=== PATIENT | male | born 1980 | race Caucasian/White ===

== ENCOUNTER 2022-12-29 19:58 | Inpatient (IN) | payer OTHER, SELFPAY ==
[2022-12-29 20:21] VITALS: BP 127/78; PULSE 100; RESP 16; TEMP 36.8; O2SAT 96; BMI 33.3
--- NOTE | 2022-12-29 21:23 | MHC.EDTECH ---
EKG, Labs and a urine culture were obtained and sent to lab and patient was brought into room 17 in the ED.
[2022-12-29 21:29] VITALS: BP 118/81; PULSE 95; RESP 18; TEMP 36.8; O2SAT 96
[2022-12-29 21:57] LABS: Alanine Aminotransferase 33 U/L (0-40); Albumin Level 4.3 g/dL (3.5-5.0); Alkaline Phosphatase 83 U/L (39-117); Anion Gap 15 (12-20); Aspartate Amino Transferase 38 U/L (5-37); Bilirubin Total 0.7 mg/dL (0.0-1.0); Blood Urea Nitrogen 12 mg/dL (9-16); Calcium 9.3 mg/dL (8.4-10.2); Carbon Dioxide 21 mmol/L (22-29); Chloride 107 mmol/L (96-108); Creatinine Clr Calc Pharmacy 127.3; Estimated Glomerular Filt Rate > 60; Ethanol 70 mg/dL; Glucose Random 88 mg/dL (60-115); Potassium 4.1 mmol/L (3.3-5.1); Sodium 139 mmol/L (135-145); Total Protein 7.8 g/dL (6.5-8.0)
--- NOTE | 2022-12-29 22:49 | ED.PSYCH ---
HPI - Psych General Chief Complaint: Psychiatric Symptoms Stated Complaint: Suicidal thoughts Time Seen by Provider: 12/29/22 21:58 Source: patient Mode of arrival: ambulatory Limitations: no limitations History of Present Illness HPI Narrative: Patient is a 42-year-old male who presents to the emergency department with suicidal ideations. He states that he has been using crack cocaine intravenously for the past 2 days, last used approximately 2 hours ago. He states that he did this as an attempt to kill himself as he has been feeling increasingly more suicidal recently. He denies alcohol usage. When asked, he does endorse chest pain, described as a diffuse anterior pain, he is unable to identify any exacerbating or alleviating factors. Denies neck pain, radiation of the pain, shortness of breath, nausea, vomiting, abdominal pain. Related Data Allergies Allergy/AdvReac Type Severity Reaction Status Date / Time No Known Allergies Allergy Verified 12/29/22 20:26 Review of Systems Review of Systems: Yes all other systems are reviewed and are negative PMFSH Past Medical History Attestation statement: The following information was validated with the patient. Source: old records reviewed Social History Social History Alcohol intake: current Advance Directives: No Advance Directives Information Provided: No Physical Exam Vital Signs: Vital Signs: Last Vital Signs Temp 98.3 F 12/29/22 21:29 Pulse 74 12/30/22 00:03 Resp 17 12/30/22 00:03 BP 111/76 12/30/22 00:03 Pulse Ox 96 12/30/22 00:03 O2 Del Method Room Air 12/30/22 00:03 BMI result Body Mass Index 33.3 Course Reevaluation(s) Reevaluation #1: Serum labs overall unremarkable. Urinalysis without signs of infection. Toxicology testing as per MDM. High sensitive troponin is negative, EKG without acute ischemic findings, showing normal sinus rhythm, unlikely ACS. When asked at this time he denies chest pain. He is in no apparent distress, cleared for evaluation by care team. Vital signs stable. No respiratory distress. Placed in position observation at this time so that care team evaluation can ensue Time: 02:02 Medical Decision Making Medical Decision Making MDM Narrative: Patient is a 42-year-old male with past medical history of hypertension, GERD, depression, polysubstance use disorder presenting to emergency department for evaluation of suicidal ideations with plan to overdose. He is calm and cooperative at the time my examination. He does endorse chest pain, denies any recent URI symptoms or shortness of breath. Will obtain CBC to evaluate for leukocytosis/ anemia, CMP to evaluate for abnormal electrolytes /abnormal renal function/ abnormal hepatic function, EKG and troponin to evaluate for ischemia/ACS. Toxicology an ethanol level to be obtained. Once medically cleared he will require care team evaluation for determination of inpatient psychiatric services. Differential Diagnosis Differential Diagnoses: The differential diagnosis associated with the presentation includes (Polysubstance use disorder, ACS, costochondritis, depression, anxiety, suicidal ideations, unlikely PE, Wells negative.) Admission/Observation Consideration of admission/observation: Escalation of care including admission/observation considered (See narrative above/course for further detail) Consult Healthcare Provider Management of the patient was discussed with: Behavioral Health Provider Lab Data MDM Lab Attestation statement: I reviewed the patient's lab results. CMP overall unremarkable. High sensitive troponin below detectable levels, with normal EKG 12/29/22 21:21 12/29/22 21:21 Labs: Lab Results 12/29/22 12/30/22 Range/Units 21:21 01:14 WBC 13.0 H (4.8-10.8) X10*3/uL RBC 4.69 (4.60-5.80) X10*6/uL Hgb 14.6 (14.0-18.0) g/dl Hct 42.8 (42.0-52.0) % MCV 91.3 (80.0-98.0) fL MCH 31.1 (27.0-33.0) pg MCHC 34.1 (31.0-36.0) g/dl RDW 13.2 (11.0-16.0) % Plt Count 243 (160-400) X10*3/uL MPV 9.8 (9.4-12.4) fL Immature Gran % (Auto) 0.4 (0.0-0.4) % Neut % (Auto) 74.7 H (45-73) % Lymph % (Auto) 15.7 L (20-40) % [place] % (Auto) 8.3 (2-11) % Eos % (Auto) 0.5 (0-4) % Baso % (Auto) 0.4 (0-2) % Lymph # (Auto) 2.0 (1.2-4.9) X10*3/uL [place] # (Auto) 1.1 (0.1-1.2) X10*3/uL Eos # (Auto) 0.1 (0.0-0.4) X10*3/uL Baso # (Auto) 0.1 (0.0-0.2) X10*3/uL Abs Immat Gran (auto) 0.05 H (0.00-0.03) X10*3/uL Absolute Neuts (auto) 9.7 H (2.0-8.3) x10*3/uL Absolute Nucleated RBC 0.000 (0.0-0.012) X10*3/uL Nucleated RBC % (auto) 0.0 (0.0-0.2) /100WBC Sodium 139 (135-145) mmol/L Potassium 4.1 (3.3-5.1) mmol/L Chloride 107 (96-108) mmol/L Carbon Dioxide 21 L (22-29) mmol/L Anion Gap 15 (12-20) BUN 12 (9-16) mg/dL Creatinine 1.04 (0.5-1.4) mg/dL Estim Creat Clear Calc 127.3 Estimated GFR > 60 Random Glucose 88 (60-115) mg/dL Calcium 9.3 (8.4-10.2) mg/dL Total Bilirubin 0.7 (0.0-1.0) mg/dL AST 38 H (5-37) U/L ALT 33 (0-40) U/L Alkaline Phosphatase 83 (39-117) U/L Troponin I High Sens < 2.7 (<3.5-35.0) ng/L Total Protein 7.8 (6.5-8.0) g/dL Albumin 4.3 (3.5-5.0) g/dL Urine Color Yellow Urine Appearance Clear Urine pH 5.0 (5.0-9.0) Ur Specific [place] 1.010 (1.005-1.025) Urine Protein Negative (Neg-Trace) mg/dL Urine Glucose (UA) Negative (Negative) mg/dL Urine Ketones 15 (Negative) mg/dL Urine Blood Negative (Negative) Urine Nitrite Negative (Negative) Ur Leukocyte Esterase Negative (Negative) Salicylates < 5.0 L (15-30) mg/dL Urine Opiates Screen Not Detected (Not Detect) Urine Fentanyl Screen POSITIVE H (Not Detect) Acetaminophen < 17 (<30) mcg/mL Ur Barbiturates Screen Not Detected (Not Detect) Ur Phencyclidine Scrn Not Detected (Not Detect) Ur Amphetamines Screen Not Detected (Not Detect) U Benzodiazepines Scrn POSITIVE H (Not Detect) Urine Cocaine Screen POSITIVE H (Not Detect) U Marijuana (THC) Screen Not Detected (Not Detect) Ethyl Alcohol 70 mg/dL Independent Interpretation I performed an independent interpretation of an: EKG Interpretation: Rate: 88 Rhythm:? Normal sinus rhythm [place]:? Normal Normal P waves.? Normal BRADY.?? Normal QRS complex.?? ST T wave :??No ST elevation, no ST depression, no T-wave inversion qTC:447 prior studies:? No prior available for review The study has been interpreted contemporaneously by me. Chronic Conditions Patient?s care impacted by: Hypertension Social Determinants Patient?s care significantly limited by Social Determinants of Health including: Alcoholism and drug addiction in family and Problems related to primary support group Discharge Plan Discharge Clinical Impression: Suicidal ideation Patient Disposition: Still a Patient Interventions: Beason-Suicide Risk Severity Scale Last Done: 12/29/22 20:26
--- NOTE | 2022-12-29 23:53 | MHC.EDTECH ---
Belongings in POD Locker #2
[2022-12-30 00:03] VITALS: BP 111/76; PULSE 74; RESP 17; O2SAT 96
--- NOTE | 2022-12-30 04:33 | PC.NURSE ---
This RN assumed care at 2130. Patient walked with this RN with slow and steady gait to room 17. Patient endorses SI with plan to OD. Patient calm and cooperative, alert and able to make needs known. Patient changed into Johnnies and belongings secured. Patient put on 1:1 observation, checks done and patient sleeping with position changes noted and even chest rise and fall. Plan of care ongoing
[2022-12-30 04:58] VITALS: BP 112/77; PULSE 89; RESP 17; TEMP 37.2; O2SAT 98
--- NOTE | 2022-12-30 18:27 | PC.NURSE ---
PT transferred to the POD awaiting admission to M[facility]. No behavioral concerns. Resting in his room most of the time back here. Appetite is good.
--- NOTE | 2022-12-30 18:56 | PHA.MEDREC ---
Pharmacy Consult ? Medication Reconciliation Pharmacy has reviewed the medication reconciliation completed by
[2022-12-30] MEDS: chlorproMAZINE HCl 25 MG TABLET 50 MG PO (19:22)
[2022-12-30 20:25] VITALS: BMI 31.3
--- NOTE | 2022-12-30 20:53 | PC.ADMIT ---
Pt is a 42 y/o single, French speaking, male who is previously unknown to this unit. Pt is alert and oriented X4, vital sign stable, covid negative, tox screen positive for cocaine, fentanyl and ETOH. Pt is calm and cooperative upon admission, endorses depression and anxiety. pt denies Si at this time. No HI/VH/AH reported. Speech is normal with regular tone, rhythm and digna. Pt reports he needs help establishing outpatient programs. Pt reports that he is homeless and feels hopeless. Insight, judgment and impulse are poor. refinery operator vapor recovery unit completed with no visible open areas or bruising in the skin. Pt refused FLU shot. Admission orders obtained. Pt is currently resting in bed, no apparent distress noted.
[2022-12-30] MEDS: traZODone HCL 50 MG TABLET PO (23:11)
[2022-12-31 07:00] VITALS: BMI 32.3
[2022-12-31] MEDS: chlorproMAZINE HCl 25 MG TABLET 50 MG PO (08:51)
[2022-12-31] MEDS: diazePAM 5 MG TABLET PO ×4 (08:52→21:21)
--- NOTE | 2022-12-31 09:45 | PC.NURSE ---
Pt signed a 3-day notice up on January 05. UR, SW, and aware.
[2022-12-31] MEDS: Magnesium Hydrox/Alum Hydrox 30 ML ORAL.SUSP PO (12:17)
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
[2022-12-31 18:00] VITALS: BP 135/88; PULSE 80; RESP 16; TEMP 36.1; O2SAT 97
[2022-12-31] MEDS: Propranolol HCL 20 MG TABLET PO (21:20)
[2022-12-31] MEDS: traZODone HCL 100 MG TABLET PO (21:20)
[2023-01-01] MEDS: chlorproMAZINE HCl 25 MG TABLET 75 MG PO (02:01)
[2023-01-01 08:10] VITALS: BP 123/78; PULSE 61; TEMP 36; O2SAT 93
[2023-01-01] MEDS: buPROPion HCl XL 300 MG TAB.ER.24H PO (08:27)
[2023-01-01] MEDS: lisinopriL 20 MG TABLET PO (08:27)
[2023-01-01] MEDS: Propranolol HCL 20 MG TABLET PO (08:28)
[2023-01-01] MEDS: amLODIPine Besylate 5 MG TABLET PO (08:28)
[2023-01-01] MEDS: Topiramate 25 MG TABLET PO (08:31)
[2023-01-01] MEDS: diazePAM 5 MG TABLET PO (08:43)
[2023-01-01 09:02] LABS: Estimated Average Glucose 108 mg/dL; Hemoglobin A1c % 5.4 % (<6.0)
[2023-01-01 09:28] LABS: Cholesterol 160 mg/dL (<200); HDL Cholesterol 43 mg/dL (>40); LDL Cholesterol Calculated 104 mg/dL (<100); Triglycerides 67 mg/dL (<150)
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
[2023-01-01 09:38] LABS: HBS Num1 > 1000.00 mIU/mL (0-7.99); HBc Num1 0.19 S/CO (0.00-0.79); HBsAGNum1 0.31 S/CO (0.00-0.99); HIV AB/AG Nonreactive (Nonreactive); HIV Num 1 0.06 S/CO (0.00-0.99); Hepatitis A Antibody IgM 0.16 Index (0-0.79); Hepatitis B Core Antibody Nonreactive (Nonreactive); Hepatitis B Surface Antigen Negative (Negative); ~HepC Num1 12.81 S/CO (0.00-0.79); ~Hepatitis A Antibody IgM Nonreactive (Nonreactive); ~Hepatitis B Surface Antibody REACTIVE (Nonreactive); ~Hepatitis C Antibody Reactive (Nonreactive)
[2023-01-01 09:39] LABS: Thyroid Stimulating Hormone 0.99 uIU/mL (0.32-4.0)
[2023-01-01 09:55] LABS: Folate 14.3 ng/mL (> or = 4.0); Vitamin B12 341 pg/mL (200-900)
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
== END 2023-01-01 13:52 | disposition home or self-care (01) | DRG 755 ==
LOC: HO.ED 12-30 11:08 → HO.PM5 12-30 19:29
PROVIDERS: Admitting Provider Psychiatry & Neurology Psychiatry; Emergency Provider Emergency Medicine; Visit Provider Clinical Nurse Specialist Psychiatric/Mental Health, Adult
DX: F43.25 Adjustment disorder with mixed disturbance of emotions and conduct (principal); R45.851 Suicidal ideations; Z91.148 Patient's other noncompliance with medication regimen for other reason; F43.10 Post-traumatic stress disorder, unspecified; F11.90 Opioid use, unspecified, uncomplicated; F14.90 Cocaine use, unspecified, uncomplicated; Y90.3 Blood alcohol level of 60-79 mg/100 ml; F19.90 Other psychoactive substance use, unspecified, uncomplicated; I10 Essential (primary) hypertension; K21.9 Gastro-esophageal reflux disease without esophagitis; Z20.822 Contact with and (suspected) exposure to COVID-19; Z79.899 Other long term (current) drug therapy
CPT/HCPCS: 36415; 80053; 80061; 80143; 80179; 80307; 81003; 82607; 82746; 83036; 84443; 84484; 85025; 86704; 86706; 86709; 86803; 87340; 87389; 87635; 93005; 99285; S9485

== ENCOUNTER → 2022-12-30 19:17 | Outpatient (BNV) | payer OTHER, SELFPAY | PROVIDERS: Admitting Provider Psychiatry & Neurology Psychiatry; Emergency Provider Emergency Medicine; Visit Provider Clinical Nurse Specialist Psychiatric/Mental Health, Adult | DX: F25.0 Schizoaffective disorder, bipolar type (principal); F14.10 Cocaine abuse, uncomplicated; F43.11 Post-traumatic stress disorder, acute; F11.90 Opioid use, unspecified, uncomplicated; F19.90 Other psychoactive substance use, unspecified, uncomplicated | CPT/HCPCS: 90792; 99238 ==

== ENCOUNTER 2024-01-20 01:07 | Emergency (ER) | payer OTHER, SELFPAY ==
--- NOTE | 2024-01-20 | ECG_ITS ---
Test Reason : PALPITATIONS Blood Pressure : / mmHG Vent. Rate : 073 BPM Atrial Rate : 073 BPM P-R Int : 152 ms QRS Dur : 098 ms QT Int : 422 ms P-R-T Axes : 074 -19 012 degrees QTc Int : 464 ms Normal sinus rhythm Normal ECG When compared with ECG of 29-DEC-2022 21:14, No significant change was found Referred By: Generic ED Physician Electronically Signed By:BRAYDEN FLANAGAN
--- NOTE | ~2024-01-20 | CT_ITS ---
EXAMINATION: CT HEAD WITHOUT CONTRAST CLINICAL INFORMATION: headache, cocaine use COMPARISON: None available. TECHNIQUE: Contiguous axial imaging was performed from the skull base to vertex without intravenous administration of contrast. This CT examination was performed using dose optimization techniques as appropriate, variously including the following: *Automated exposure control *Adjustment of mA and/or kV according to patient size (this includes techniques or standardized protocols for targeted exams where dose is matched to indication/reason for exam; i.e. extremities or head) *Use of iterative reconstruction technique DLP: 836 mGy-cm FINDINGS: Old traumatic deformities, nasal bones. Bony calvarium is intact. Skull base is intact. No intracranial hemorrhage, mass effect, midline shift, hydrocephalus or herniation. See-white matter differentiation is normal. Posterior cranial fossa contents demonstrated no acute intracranial hemorrhage. Sellar/suprasellar region demonstrated no gross masses. Craniocervical junction is intact and normal. Polyploid mucosal thickening, maxillary sinus. No air-fluid levels. Tympanic cavities and mastoid cells are aerated. Calcified plaques in the V4 segments of the vertebral arteries.. CT/CT head/brain wo IV con IMPRESSION: No acute intracranial hemorrhage. Electronically signed by: Abdoul Sow MD 01/20/2024 02:20 PM EDT
[2024-01-20 01:17] VITALS: BP 141/102; PULSE 75; RESP 18; TEMP 36.3; O2SAT 96; BMI 32.1
--- OUTSIDE RECORDS SUMMARY | 2024-01-20 01:20 | XMS_ITS | Continuity of Care Document ---
Author Organization [facility] ter Address [address] [place] [id number]- Care Team Providers Care Relationship Counselor Name Role Phone Devin CONTRERAS, Og Burger Primary Care Physician Encounter [facility] [place] Date(s): 01/05/23 - 02/04/[address] [id number] Attending Physician: Javy Leigh DO Referring Physician: Not on Staff, Referring MD Allergies, Adverse Reactions, Alerts No Known Allergies Medications amLODIPine 10 mg oral tablet 10 mg, 1, tablet, By Mouth, Daily, # 30 tablet, Refills 0, Tot. Refills 0, Maintenance, 01/11/23 8:14:00 EDT, Print Requisition, Partial fill upon patient request if the prescription is for a schedule II opioid drug. Start Date: 01/11/23 Status: Ordered buPROPion 300 mg/24 hours (XL) oral tablet, extended release = 300 mg, By Mouth, Daily in AM, # 30 tablet, 0 Refills, Maintenance, 01/11/23 7:47:00 EDT, XL Tablet, Partial fill upon patient request if the prescription is for a schedule II opioid drug. Start Date: 01/11/23 Stop Date: 02/10/23 Status: Ordered cloNIDine 0.1 mg oral tablet 0.1 mg, 1, tablet, By Mouth, 3 times a day, PRN, And anxiety associated with opiate withdrawal, # 90 tablet, Refills 0, Tot. Refills 0, Maintenance, Agitation, 01/11/23 7:57:00 EDT, Print Requisition, Partial fill upon patient request if the prescript... Start Date: 01/11/23 Stop Date: 02/10/23 Status: Ordered folic acid 1 mg oral tablet 1 mg, By Mouth, Daily in AM, # 30 tablet, Refills 0, Tot. Refills 0, Maintenance, 01/11/23 7:48:00 EDT, Print Requisition, Partial fill upon patient request if the prescription is for a schedule II opioid drug. Start Date: 01/11/23 Stop Date: 02/10/23 Status: Ordered KlonoPIN 1 mg oral tablet = 1 mg, By Mouth, 3 times a day, # 90 tablet, 0 Refills, Maintenance, 01/11/23 8:49:00 EDT, Tablet,Partial fill upon patient request if the prescription is for a schedule II opioid drug. Start Date: 01/11/23 Stop Date: 02/10/23 Status: Ordered lisinopril 20 mg oral tablet 20 mg, By Mouth, Daily in AM, # 30 tablet, Refills 0, Tot. Refills 0, Maintenance, 01/11/23 7:48:00EDT, Print Requisition, Partial fill upon patient request if the prescription is for a schedule II opioid drug. Start Date: 01/11/23 Stop Date: 02/10/23 Status: Ordered multivitamin Multiple Vitamins oral capsule 1 capsule, By Mouth, Daily in AM, # 30 capsule, 0 Refills, Maintenance, 01/11/23 7:54:00 EDT, Capsule, Partial fill upon patient request if the prescription is for a schedule II opioid drug. Start Date: 01/11/23 Stop Date: 02/10/23 Status: Ordered propranolol 60 mg oral capsule, extended release 60 mg, 1, capsule, By Mouth, Daily in AM, # 30 capsule, Refills 0, Tot. Refills 0, Maintenance, 01/11/23 7:54:00 EDT, Print Requisition, Partial fill upon patient request if the prescription is for aschedule II opioid drug. Start Date: 01/11/23 Stop Date: 02/10/23 Status: Ordered pyridoxine 50 mg oral tablet 50 mg, By Mouth, Daily in AM, for 30 days, # 30 tablet, Refills 0, Tot. Refills 0, Acute 02/10/23 7:57:00 EST, 01/11/23 7:57:00 EDT, Print Requisition, Partial fill upon patient request if the prescription is for a schedule II opioid drug. Start Date: 01/11/23 Stop Date: 02/10/23 Status: Ordered SEROquel XR 150 mg oral tablet, extended release 150 mg, 1, tablet, By Mouth, Daily at bedtime, # 30 tablet, Refills 0, Tot. Refills 0, Maintenance,01/11/23 7:57:00 EDT, Print Requisition, Partial fill upon patient request if the prescription is for a schedule II opioid drug. Start Date: 01/11/23 Stop Date: 02/10/23 Status: Ordered thiamine 100 mg oral tablet 100 mg, 1, tablet, By Mouth, 2 times a day, for 30 days, # 60 tablet, Refills 0, Tot. Refills 0, Acute 02/10/23 7:54:00 EST, 01/11/23 7:54:00 EDT, Print Requisition, Partial fill upon patient requestif the prescription is for a schedule II opioid drug. Start Date: 01/11/23 Stop Date: 02/10/23 Status: Ordered topiramate 25 mg oral tablet 1 tablet = 25 mg, By Mouth, Daily in AM, # 30 tablet, 0 Refills, Maintenance, 01/11/23 7:57:00 EDT,Tablet, Partial fill upon patient request if the prescription is for a schedule II opioid drug. Start Date: 01/11/23 Stop Date: 02/10/23 Status: Ordered Problem List Condition Confirmation Course Effective Dates Status H ealth Status Informant Anemia Confirmed Active Hep C w/o coma, chronic Confirmed Active Depression Confirmed Active Hypertension Confirmed Active Alcohol use disorder, moderate, dependence Confirmed Active Obese class I Confirmed Active Opiate abuse, episodic Confirmed Active Polysubstance abuse Confirmed Active Social History Social History Type Response Tobacco Use: 4 or less cigar ettes(less than 1/4 pack)/day in last 30 days. Interested in cessation: No. No Sex Patient Care team information Care Team Personnel Name: Erwin Winchester RN Position: S RN Member Role: Primary Care Nurse Name: Dennis Banks RN Position: S RN Member Role: Primary Care Nurse Name: Sammie Ramos RN Position: S RN Member Role: Primary Care Nurse Name: Og Beltran MD Position: Reference Physician Member Role: PCP Address: Address: [address] [place] [address] [facility] [address]
--- OUTSIDE RECORDS SUMMARY | 2024-01-20 01:20 | XMS_ITS | Continuity of Care Document ---
Author Organization [facility] ter Address [address] [place] [id number]- Care Team Providers Care Molder Wax Ball Name Role Phone Og Beltran MD Primary Care Physician ( [phone] Encounter [facility] [place] Date(s): 01/16/24 - 01/17/[address] [address]- Discharge Disposition: A-D/C Home Attending Physician: Diego Bianchi MD Admitting Physician: Diego Bianchi MD Referring Physician: Not on Staff, Referring MD [...] Date: 01/11/23 Stop Date: 02/10/23 Status: Ordered clonazePAM 1 mg oral tablet 1 tablet = 1 mg, By Mouth, 3 times a day, 0 Refills, Maintenance, 01/17/24 13:45:00 EDT, Tablet, Partial fill upon patient request if the prescription is for a schedule II opioid drug. Start Date: 01/17/24 Status: Ordered cloNIDine 0.1 mg oral tablet [...] mg oral capsule, extended release 60 mg, CR Capsule, By Mouth, 01/17/24 9:00:00 EDT Start Date: 01/17/24 Stop Date: 01/17/24 Status: Completed propranolol 60 mg oral capsule, extended release [...] episodic Confirmed Active Polysubstance abuse Confirmed Active Vital Signs Most recent to oldest [Reference Range]: 1 2 3 Weight 117.1 kg (01/17/24 5:20 PM) 117.1 kg (01/17/24 8:42 AM) 117.1 kg (01/17/24 4:38 AM) Oxygen Saturation [94-100 %] 98 % (01/17/24 5:20 PM) 98 % (01/17/24 8:42 AM) 97 % (01/17/24 4:38 AM) Pulse Rate [55-90 bpm] 52 bpm *L* (01/17/24 5:20 PM) 66 bpm (01/17/24 8:42 AM) 66 bpm (01/17/24 8:31 AM) Blood Pressure [90-138/55-84 mm Hg] 120/88mm Hg (01/17/24 5:20 PM) 131/91mm Hg (01/17/24 8:42 AM) 131/91mm Hg (01/17/24 8:31 AM) Respiratory Rate [16-30 br/min] 17 br/min (01/17/24 5:20 PM) 17 br/min (01/17/24 8:42 AM) 16 br/min (01/17/24 4:38 AM) Temperature [96.8-100.4 DegF] 97.9 DegF (01/17/24 8:42 AM) 98.1 DegF (01/16/24 10:45 PM) Mode of Delivery (Oxygen) Room air (01/17/24 5:20 PM) Room air (01/17/24 8:42 AM) Room air (01/17/24 4:38 AM) Blood pressure sites Arm, left (01/17/24 5:20 PM) Arm, left (01/17/24 8:42 AM) Arm, right (01/17/24 4:38 AM) Temperature Route Oral (01/17/24 8:42 AM) Oral (01/16/24 10:45 PM) Dry Weight 117.1 kg (01/17/24 5:20 PM) 117.1 kg (01/17/24 8:42 AM) 117.1 kg (01/17/24 4:38 AM) Weight Obtained Via Patient/family state d (01/16/24 10:41 PM) Dry Weight Obtained Via Patient/family s tated (01/16/24 10:41 PM) Social History Social History Type Response Tobacco Use: 4 or less cigar ettes(less than 1/4 pack)/day in last 30 days. Interested in cessation: No. No Sex Patient Care team information Care Team Personnel Name: Sammie Ramos RN Position: S RN Member Role: Primary Care Nurse Name: Og Beltran MD Position: Reference Physician Member Role: PCP Address: Address: [address] [place] [address] [facility] [place] [address]- [place]
--- OUTSIDE RECORDS SUMMARY | 2024-01-20 01:20 | XMS_ITS | Continuity of Care Document ---
Author Organization [facility] ter Address [address] [place] [id number]- Care Team Providers Care Kitchen Aide Name Role Phone Devin CONTRERAS, Og Burger Primary Care Physician ( [phone] Encounter [facility] [place] Date(s): 01/16/23 - 01/18/[address] [address]- Discharge Disposition: Transfer to [facility] Facility Attending Physician: Guillermo Berrios MD Admitting Physician: Guillermo Berrios MD Referring Physician: Not on Staff, Referring [...] to oldest [Reference Range]: 1 2 3 Height 188 cm (01/17/23 10:05 PM) 188 cm (01/17/23 5:16 PM) 188 cm (01/17/23 7:49 AM) Weight 114 kg (01/17/23 10:05 PM) 114 kg (01/17/23 5:16 PM) 114 kg (01/17/23 7:49 AM) Oxygen Saturation [94-100 %] 98 % (01/18/23 9:23 AM) 96 % (01/18/23 5:00 AM) 98 % (01/17/23 10:05 PM) Pulse Rate [55-90 bpm] 67 bpm (01/18/23 9:23 AM) 56 bpm (01/18/23 5:00 AM) 50 bpm *L* (01/17/23 10:05 PM) Body Mass Index [18.5-24.99 kg/m2] 32.25 kg/m2 *>HHI* (01/17/23 10:05 PM) 32.25 kg/m2 *>HHI* (01/17/23 5:16 PM) 32.25 kg/m2 *>HHI* (01/17/23 7:49 AM) Blood Pressure [90-138/55-84 mm Hg] 148/98mm Hg *H* (01/18/23 9:23 AM) 130/85mm Hg (01/18/23 5:00 AM) 125/83mm Hg (01/17/23 10:05 PM) Respiratory Rate [16-30 br/min] 18 br/min (01/18/23 9:23 AM) 18 br/min (01/18/23 5:00 AM) 18 br/min (01/17/23 10:05 PM) Temperature [96.8-100.4 DegF] 98.0 DegF (01/17/23 10:05 PM) 98.3 DegF (01/17/23 5:16 PM) 97.4 DegF (01/17/23 7:49 AM) Mode of Delivery (Oxygen) Room air (01/17/23 10:05 PM) Room air (01/17/23 5:16 PM) Room air (01/17/23 7:49 AM) Blood pressure sites Arm, right (01/17/23 10:05 PM) Arm, right (01/17/23 5:16 PM) Arm, right (01/17/23 7:49 AM) Temperature Route Oral (01/17/23 10:05 PM) Oral (01/17/23 5:16 PM) Oral (01/17/23 7:49 AM) Dry Weight 114 kg (01/17/23 10:05 PM) 114 kg (01/17/23 5:16 PM) 114 kg (01/17/23 7:49 AM) Dry Weight Obtained Via Patient/family s tated (01/16/23 8:33 AM) Social History Social History Type Response Tobacco Use: 4 or less cigar ettes(less than 1/4 pack)/day in last 30 days. Interested in cessation: No. No Sex EKG study * Event Display: ECG 12-Lead Authored Date: Please click on pdf link to open report * Event Display: ECG 12-Lead Authored Date: Ventricular Rate: 84 BPM Atrial Rate: 84 BPM P-R Interval: 158 ms QRS Duration: 90 ms Q-T Interval: 394 ms QTC Calculation(Bazett): 465 ms P Hunnewell: 46 degrees R Hun[place]ell: -12 degrees T Hunnewell: 13 degrees Normal sinus rhythm Normal ECG When compared with ECG of 05-JAN-2023 16:37, Vent. rate has increased BY 31 BPM QT has lengthened Confirmed by ERICK LOPEZ MD ([id number]) on 01/18/2023 10:31:27 AM [place]: ERICK LOPEZ MD Consult note * Desiree Blair NP: PERFORM, SIGN, VERIFY, MODIFY, SIGN Amparo Ramirez DO: REVIEW Event Display: Consultation Note Authored Date: Patient: AJ ALEJO Age: 42 years Sex: Male : 1980 Associated Diagnoses: None Author: Desiree Blair NP Extensive chart review was performed, and case discussed with treatment team. In brief, this is a 42-year-old male with past medical history significant for depression, alcohol use disorder, and polysubstance abuse, and a PMHx of HTN who [facility] 01[facility]16[facility]2023 for suicidal ideation. Patient discharged from [facility] on 01/11/2023. At this point in time, the patient has been medically cleared and referred to [facility] for evaluation and assistance with disposition for potential inpatient psychiatric hospitalization. In the interim, will restart discharge medication regimen from recent hospitalization on [facility]: Wellbutrin XL 300 mg PO, Klonopin 1 mg PO three times daily, propranolol ER 60 mg PO daily in AM (hold for SBP<90 DBP<60 or HR<60), Seroquel XR 150 mg PO daily at bedtime, Topamax 25 mg PO daily in AM, and clonidine 0.1 mg PO three times daily PRN anxiety (hold for SBP<90 DBP<60 or HR<60). Will also initiate Trazodone 50 mg PO daily at bedtime PRN insomnia. Can also utilize Seroquel 50 mg PO Q4H PRN agitation. The preference is for PO medications, but if the patient refuses the oral medications and there is sufficient acute safety concern, can judiciously utilize IM medications for severe agitation. No additional changes were made to scheduled psychotropic medications at this time. Would note that these m edications are only being utilized in the ER while the patient awaits placement. Long-term need forthese medications will need to be assessed by the patient???s future treating psychiatrist. Disposition is ultimately deferred to [facility]. Temperature 97.4 (07:50) Systolic Blood Pressure 117 (08:42) Diastolic Blood Pressure 68 (08:42) Pulse 56 (08:42) SpO2 96 (07:50) Respiratory Rate 16 (07:50) Result type: ECG 12-Lead Result date: January 16, 2023 9:19 EDT Result status: Preliminary Result title: 12 Lead ECG Encounter info: [id number], [facility], Emergency, 01/16/2023 - Contributor system: [id number] Ventricular Rate: 84 BPM Atrial Rate: 84 BPM P-R Interval: 158 ms QRS Duration: 90 ms Q-T Interval: 394 ms QTC Calculation(Bazett): 465 ms P [place]ell: 46 degrees R [place]: -12 degrees T Hunnewell: 13 degrees Normal sinus rhythm Normal ECG When compared with ECG of 05-JAN-2023 16:37, Vent. rate has increased BY 31 BPM QT has lengthened [place]: , ECG 12-Lead Please click on pdf link to open report Patient Care team information Care Team Personnel Name: Erwin Winchester RN Position: [facility] RN Member Role: Primary Care Nurse Name: Dennis Banks RN Position: [facility] RN Member Role: Primary Care Nurse Name: Sammie Ramos RN Position: [facility] RN Member Role: Primary Care Nurse Name: Og Beltran MD Position: Reference Physician Member Role: PCP Address: Address: [address] [place] [address] [facility] [address]- Name: *[facility], ED Attending Position: [facility] ED Attendings Patient Name: Dottie Sutherland RN Position: [facility] ED RN W/OE and Tasks Member Role: Patient Care Provider Name: Guillermo Berrios MD Position: [facility] ED Medicine MD Member Role: Admitting Physician Address: Address: [address] [place] [address] Emergency Medicine [place], [place] [address]
--- NOTE | 2024-01-20 01:50 | PC.NURSE ---
Addendum entered by Dorinda Weathers 01/20/24 02:08: Addendum- Pt D/C from [facility] on 01/11/23 not 01/12/24. Original Note: Pt changed into hospital attire, belongings in locker #8. EKG performed, labs drawn and sent for processing. CIWA 2. Per CCD document pt d/c from [facility] yesterday after presenting for SI. D/C from [facility] inpt stay on 01/12/24. Pt states I really need help . Awaiting primary provider eval, aware of plan of care.
[2024-01-20 02:00] LABS: MANUAL DIFF FLAG NO
[2024-01-20 02:01] LABS: Basophils Percent Auto 0.3 % (0-2); Eosinophils Percent Auto 0.3 % (0-4); Hemoglobin 13.9 g/dl (14.0-18.0); Imm Gran Abs Auto 0.04 X10*3/uL (0.00-0.03); Imm Gran Pct Auto 0.3 % (0.0-0.4); Lymphocytes Absolute Auto 1.8 X10*3/uL (1.2-4.9); Lymphocytes Percent Auto 15.7 % (20-40); Mean Corpuscular HGB Conc 34.8 g/dl (31.0-36.0); Mean Corpuscular Hemoglobin 30.2 pg (27.0-33.0); Mean Corpuscular Volume 86.8 fL (80.0-98.0); Mean Platelet Volume 9.4 fL (9.4-12.4); Monocytes Percent Auto 8.1 % (2-11); Neutrophils Absolute Auto 8.8 x10*3/uL (2.0-8.3); Neutrophils Percent Auto 75.3 % (45-73); Platelet Count 235 X10*3/uL (160-400); Red Blood Count 4.61 X10*6/uL (4.60-5.80); Red Cell Distribution Width 12.8 % (11.0-16.0); White Blood Count 11.7 X10*3/uL (4.8-10.8)
[2024-01-20 02:25] LABS: Alanine Aminotransferase 28 U/L (0-40); Albumin Level 4.1 g/dL (3.5-5.0); Anion Gap 15 (12-20); Aspartate Amino Transferase 27 U/L (5-37); Bilirubin Total 0.5 mg/dL (0.0-1.0); Blood Urea Nitrogen 16 mg/dL (9-16); Calcium 9.1 mg/dL (8.4-10.2); Carbon Dioxide 22 mmol/L (22-29); Chloride 109 mmol/L (96-108); Estimated Glomerular Filt Rate > 60; Ethanol < 10 mg/dL; Glucose Random 106 mg/dL (60-115); Potassium 3.7 mmol/L (3.3-5.1); Sodium 142 mmol/L (135-145); Total Protein 7.5 g/dL (6.5-8.0); Troponin-I High Sensitivity < 2.7 ng/L (<3.5-35.0)
[2024-01-20 02:27] LABS: Amphetamine Screen Urine Not Detected (Not Detect); Barbiturates, Urine Not Detected (Not Detect); Benzodiazepines Screen Urine POSITIVE (Not Detect); Buprenorphine Scr Not Detected (Not Detect); Cannabinoid Screen Urine Not Detected (Not Detect); Cocaine Screen Urine POSITIVE (Not Detect); Fentanyl, urine Not Detected (Not Detect); Methadone Screen, Urine Not Detected (Not Detect); Opiate Screen Urine Not Detected (Not Detect); Oxycodone Screen Urine Not Detected (Not Detect); Phencyclidine Screen Urine Not Detected (Not Detect)
[2024-01-20 02:35] LABS: Alkaline Phosphatase 74 U/L (39-117)
[2024-01-20 04:56] VITALS: BP 121/76; PULSE 75; RESP 16; TEMP 36.7; O2SAT 97
--- NOTE | 2024-01-20 06:40 | ED_ITS ---
HPI - General Adult General Chief complaint: Psychiatric Symptoms Stated complaint: HPD LOBITO demarco w/ plan Time Seen by Provider: 01/20/24 06:35 Source: patient and EMS Mode of arrival: EMS Limitations: no limitations History of Present Illness ED Provider: Racquel Tejeda PA-C HPI narrative: Patient is a 43 year old assigned male at with a history of cocaine use disorder and PTSD presenting to the emergency department today with suicidal ideation and cocaine use. Patient states that he did a lot of cocaine last night in an attempt to kill himself. Patient states that he is feeling more depressed and suicidal. Patient denies any dizziness, lightheadedness, abdominal pain, nausea, vomiting, fever, chills, blurry vision, double vision, loss of vision, chest pain, difficulty breathing, shortness of breath, back pain, night sweats, pain with urination, increased urinary frequency, increased urinary urgency, blood in his urine or stool, syncope or a near syncopal episode, recent trauma or falls, bowel incontinence, bladder incontinence, or any other complaints at this time. Relieving factors: none Exacerbating factors: none Associated symptoms: denies other symptoms Treatments prior to arrival: none Related Data Previous Rx's ?Medication ?Instructions ?Recorded amlodipine 5 mg tablet 5 mg PO DAILY 30 days #30 tabs 01/01/23 bupropion HCl 300 mg 24 hr tablet, 300 mg PO QAM 30 days #30 tabs 01/01/23 extended release chlorpromazine 50 mg tablet 75 mg (1.5 x 50 mg) PO TID PRN 01/01/23 anxiety 30 days #135 tabs lisinopril 20 mg tablet 20 mg PO DAILY 30 days #30 tabs 01/01/23 propranolol 20 mg tablet 20 mg PO BID 30 days #60 tabs 01/01/23 topiramate 25 mg tablet 25 mg PO DAILY 30 days #30 tabs 01/01/23 trazodone 100 mg tablet 100 mg PO BEDTIME PRN insomnia 30 01/01/23 days #30 tabs Allergies Allergy/AdvReac Type Severity Reaction Status Date / Time No Known Allergies Allergy Verified 01/20/24 01:22 Review of Systems 2 Constitutional: Constitutional: Reports no additional constitutional complaints, Denies chills, Denies fever(s) and Denies night sweats Eyes: Eyes: Reports no additional eye complaints, Denies blurry vision, Denies change in vision, Denies diplopia, Denies eye discharge, Denies loss of vision and Denies eye pain ENT: Denies dizziness Cardiovascular: Cardiovascular: Reports no additional cardiovascular complaints, Denies chest pain, Denies lightheadedness, Denies Loss of Consciousness and Denies dyspnea Respiratory: Respiratory: Reports no additional respiratory complaints and Denies dyspnea Gastrointestinal: Gastrointestinal: Reports no additional gastrointestinal complaints, Denies abdominal pain, Denies melena, Denies hematochezia, Denies change in bowel habits and Denies change in stool character Genitourinary: Genitourinary: Reports no additional male genitourinary complaints, Denies hematuria, Denies oliguria, Denies difficulty urinating, Denies dysuria, Denies urinary frequency, Denies urinary hesitancy, Denies urinary incontinence and Denies urinary urgency Musculoskeletal: Musculoskeletal: Reports no additional musculoskeletal complaints, Denies numbness and Denies tingling Neurologic: Denies dizziness, Denies loss of vision, Denies numbness and Denies tingling Psychiatric: Psychiatric: Denies homicidal ideation and Reports suicidal ideation Endocrine: Endocrine: Reports no additional endocrine complaints Hematologic/Lymphatic: Hematologic/Lymphatic: Reports no additional hematologic/lymphatic complaints Allergic/Immunologic: Allergic/Immunologic: Reports no additional allergic/immunologic complaints PMF Past Medical History Attestation statement: The following information was validated with the patient. Source: old records reviewed and nursing notes reviewed Medical History Cocaine use disorder Opioid use disorder Polysubstance use disorder Suicidal ideation Schizoaffective disorder, bipolar type PTSD (post-traumatic stress disorder) Social History Social History Household Members: None Housing: Homeless Do you presently have visiting nurse or other home services: No Alcohol intake: current Alcohol intake frequency: 3 or more drinks per day Alcohol type: beer Patient Tobacco Use Status: Never used Tobacco Smoked in Last 30 Days: No Use of substances other than those prescribed or required for medical reasons: Yes Substance Use Type: Crack/Cocaine Any prior treatment program specific to substance use: Yes Advance Directives: No Advance Directives Information Provided: No Do you have a plan to hurt others: No Plan service: No Sexual orientation: Did not discuss Physical Exam ED Vital Signs: Vital Signs - 24 hr 01/20/24 01:17 01/20/24 04:56 01/20/24 09:37 Temperature 97.3 F 98.0 F 97.8 F Pulse Rate 75 75 68 Respiratory Rate 18 16 13 Blood Pressure 141/102 H 121/76 122/79 Pulse Oximetry 96 97 95 Oxygen Delivery Method Room Air Room Air Room Air BMI result Body Mass Index 32.1 Const General: cooperative, no acute distress, alert and awake Nutritional Appearance: well nourished Orientation/consciousness: patient oriented x3 Limitations: no limitations HENMT Head: Yes normal to inspection and Yes atraumatic Ears: hearing grossly normal bilaterally and external ears normal General nose exam: Normal external nose present, no nasal discharge noted and no epistaxis Face and sinus: Yes normal facial exam, No abrasion and No laceration Mouth: Normal oral and palatal mucosa present, no drooling and no muffled voice Eyes General: appearance normal, both eyes and all related structures Periorbital: periorbital findings normal Eyelids: Yes eyelids normal Conjunctivae: conjunctivae normal Pupils: Equal, round and reactive pupils present EOM: EOMs intact bilaterally Neck Neck: Yes normal visual inspection, Yes full ROM and Yes no lymphadenopathy Chest Chest palpation & inspection: normal inspection of the chest Resp Effort & Inspection: normal respiratory effort and able to speak in complete sentences GI Inspection: Yes normal to inspection Neuro General: patient oriented x3 and moves all extremities Cranial nerves: Yes Equal, round and reactive pupils present Cognition (Neuro): normal cognition Extrem General: Yes normal to inspection, Yes full ROM and Yes capillary refill normal Psych Appearance: grossly normal Mental Status: mental status grossly normal Affect: normal affect Attitude: cooperative Thought process: Normal thought process present Thought content: Normal thought content present Insight: Good insight present (Psych) Medications Administered Generic Name Dose Route Start Last Admin Trade Name Freq PRN Reason Stop Dose Admin Lorazepam 2 mg 01/20/24 11:51 01/20/24 13:38 Lorazepam 1 Mg Tablet PO 2 mg RQ6H PRN Administration Anxiety Discontinued Medications Generic Name Dose Route Start Last Admin Trade Name Freq PRN Reason Stop Dose Admin Acetaminophen 650 mg 01/20/24 08:03 01/20/24 08:22 Acetaminophen 325 Mg Tablet PO 01/20/24 08:04 650 mg ONCE ONE Administration Lorazepam 2 mg 01/20/24 07:59 01/20/24 08:22 Lorazepam 1 Mg Tablet PO 2 mg ONCE PRN Administration Anxiety Medical Decision Making Medical Decision Making [facility] Narrative: Patient is a 43 year old assigned male at with a history of cocaine use disorder and PTSD presenting to the emergency department today with suicidal ideation and cocaine use. Patient's physical exam was unremarkable. Patient's blood work was unremarkable. Patient's EKG was unremarkable. I explained my physical exam findings as well as all test results to the patient. I answered all questions asked by the patient. Patient evaluated by the CARE team who recommended a dual diagnosis bed search. Patient has been accepted a dual diagnosis facility. Differential Diagnosis Differential Diagnoses: The differential diagnosis associated with the presentation includes Cocaine use SI Admission/Observation Consideration of admission/observation: Escalation of care including admission/observation considered Patient is a dual diagnosis bed search. Consult Healthcare Provider Management of the patient was discussed with: Behavioral Health Provider (spoke to the CARE team as noted in the MDM Rationale portion of this note) Lab Data [facility] Lab Attestation statement: I reviewed the patient's lab results. My interpretation of these results are in the MDM Rationale portion of this note. 01/20/24 01:52 01/20/24 01:52 Labs: Lab Results 01/20/24 01/20/24 Range/Units 01:52 01:59 WBC 11.7 H (4.8-10.8) X10*3/uL RBC 4.61 (4.60-5.80) X10*6/uL Hgb 13.9 L (14.0-18.0) g/dl Hct 40.0 L (42.0-52.0) % MCV 86.8 (80.0-98.0) fL MCH 30.2 (27.0-33.0) pg MCHC 34.8 (31.0-36.0) g/dl RDW 12.8 (11.0-16.0) % Plt Count 235 (160-400) X10*3/uL MPV 9.4 (9.4-12.4) fL Immature Gran % (Auto) 0.3 (0.0-0.4) % Neut % (Auto) 75.3 H (45-73) % Lymph % (Auto) 15.7 L (20-40) % Bradley % (Auto) 8.1 (2-11) % Eos % (Auto) 0.3 (0-4) % Baso % (Auto) 0.3 (0-2) % Lymph # (Auto) 1.8 (1.2-4.9) X10*3/uL Bradley # (Auto) 1.0 (0.1-1.2) X10*3/uL Eos # (Auto) 0.0 (0.0-0.4) X10*3/uL Baso # (Auto) 0.0 (0.0-0.2) X10*3/uL Abs Immat Gran (auto) 0.04 H (0.00-0.03) X10*3/uL Absolute Neuts (auto) 8.8 H (2.0-8.3) x10*3/uL Absolute Nucleated RBC 0.000 (0.0-0.012) X10*3/uL Nucleated RBC % (auto) 0.0 (0.0-0.2) /100WBC Sodium 142 (135-145) mmol/L Potassium 3.7 (3.3-5.1) mmol/L Chloride 109 H (96-108) mmol/L Carbon Dioxide 22 (22-29) mmol/L Anion Gap 15 (12-20) BUN 16 (9-16) mg/dL Creatinine 1.12 (0.5-1.4) mg/dL Estim Creat Clear Calc 115.0 Estimated GFR > 60 Random Glucose 106 (60-115) mg/dL Calcium 9.1 (8.4-10.2) mg/dL Total Bilirubin 0.5 (0.0-1.0) mg/dL AST 27 (5-37) U/L ALT 28 (0-40) U/L Alkaline Phosphatase 74 (39-117) U/L Troponin I High Sens < 2.7 (<3.5-35.0) ng/L Total Protein 7.5 (6.5-8.0) g/dL Albumin 4.1 (3.5-5.0) g/dL Urine Color Dark Yellow Urine Appearance Clear Urine pH 5.5 (5.0-9.0) Ur Specific [place] >= 1.030 H (1.005-1.025) Urine Protein Trace (Neg-Trace) mg/dL Urine Glucose (UA) Negative (Negative) mg/dL Urine Ketones Trace (Negative) mg/dL Urine Blood Negative (Negative) Urine Nitrite Negative (Negative) Ur Leukocyte Esterase Negative (Negative) Urine Opiates Screen Not Detected (Not Detect) Ur Buprenorphine Scrn Not Detected (Not Detect) ng/mL Ur Oxycodone Screen Not Detected (Not Detect) ng/mL Urine Methadone Screen Not Detected (Not Detect) ng/mL Urine Fentanyl Screen Not Detected (Not Detect) Ur Barbiturates Screen Not Detected (Not Detect) Ur Phencyclidine Scrn Not Detected (Not Detect) Ur Amphetamines Screen Not Detected (Not Detect) U Benzodiazepines Scrn POSITIVE H (Not Detect) Urine Cocaine Screen POSITIVE H (Not Detect) U Marijuana (THC) Screen Not Detected (Not Detect) Ethyl Alcohol < 10 mg/dL Independent Interpretation I performed an independent interpretation of an: EKG and CT Scan Interpretation: EXAMINATION: CT HEAD WITHOUT CONTRAST CLINICAL INFORMATION: headache, cocaine use COMPARISON: None available. TECHNIQUE: Contiguous axial imaging was performed from the skull base to vertex without intravenous administration of contrast. This CT examination was performed using dose optimization techniques as appropriate, variously including the following: *Automated exposure control *Adjustment of mA and/or kV according to patient size (this includes techniques or standardized protocols for targeted exams where dose is matched to indication/reason for exam; i.e. extremities or head) *Use of iterative reconstruction technique DLP: 836 mGy-cm FINDINGS: Old traumatic deformities, nasal bones. Bony calvarium is intact. Skull base is intact. No intracranial hemorrhage, mass effect, midline shift, hydrocephalus or herniation. See-white matter differentiation is normal. Posterior cranial fossa contents demonstrated no acute intracranial hemorrhage. Sellar/suprasellar region demonstrated no gross masses. Craniocervical junction is intact and normal. Polyploid mucosal thickening, maxillary sinus. No air-fluid levels. Tympanic cavities and mastoid cells are aerated. Calcified plaques in the V4 segments of the vertebral arteries. CT/CT head/brain wo IV con IMPRESSION: No acute intracranial hemorrhage. Electronically signed by: Abdoul Sow MD 01/20/2024 02:20 PM EDT RP Dictated By: Abdoul Booth Signed By: Electronically signed by Abdoul Garrison 01/20/24 2840 Vent. Rate: 073 BPM Atrial Rate: 073 BPM P-R Int: 152 ms QRS Dur: 098 ms QT Int: 422 ms P-R-T Axes: 074 -19 012 degrees QTc Int: 464 ms Normal sinus rhythm Normal ECG When compared with ECG of 29-DEC-2022 21:14, No significant change was found DD/ [id number] Radiology Impression Discussion of test interpretation with radiology: I have reviewed the radiologist's reading. Independent Historian Clinical information obtained from an independent historian. History obtained from or confirmed by: EMS (EMS provided additional history and confirmed the history provided by the patient. ) Critical Care Time Critical Care Time Critical Care Time: Yes Total Critical Care Time: 45 Attestation: I spent 45 minutes of Critical Care Time with this patient. This does not include time spent on separately reported billable procedures. 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 Patient Disposition: Xfer Psychiatric Hosp Transfer Details: TO: [facility], [address] [place], [address], Prescriptions: No Action amlodipine 5 mg Tablet 5 mg PO DAILY 30 Days Qty: 30 0RF Protocol: Hold for SBP< HOLD for SBP < : 90 propranolol 20 mg Tablet 20 mg PO BID 30 Days Qty: 60 0RF Protocol: Hold for SBP/HR < HOLD for SBP < : 90 HOLD for HR < : 60 lisinopril 20 mg tablet 20 mg PO DAILY 30 Days Qty: 30 0RF topiramate 25 mg tablet 25 mg PO DAILY 30 Days Qty: 30 0RF trazodone 100 mg tablet 100 mg PO BEDTIME PRN (Reason: insomnia) 30 Days Qty: 30 0RF bupropion HCl 300 mg tablet extended release 24 hr 300 mg PO QAM 30 Days Qty: 30 0RF chlorpromazine 50 mg tablet 75 mg PO TID PRN (Reason: anxiety) 30 Days Qty: 135 0RF Interventions: [place]-Suicide Risk Severity Scale Last Done: 01/20/24 01:24 Print Language: Citizen Of [place]
--- NOTE | 2024-01-20 07:45 | PC.NURSE ---
pts CIWA 7, informed Racquel SANZ of this and requested PRN ativan
[2024-01-20] MEDS: Acetaminophen 325 MG TABLET 650 MG PO (08:22)
[2024-01-20] MEDS: LORazepam 1 MG TABLET 2 MG PO ×2 (08:22→13:38)
[2024-01-20 09:37] VITALS: BP 122/79; PULSE 68; RESP 13; TEMP 36.6; O2SAT 95
[2024-01-20 11:52] LABS: Appearance Urine Clear; Color Urine Dark Yellow; Glucose Urine UA Negative (Negative); Leukocyte Esterase Urine Negative (Negative); Nitrite Urine Negative (Negative); PH 5.5 (5.0-9.0); Specific Gravity - Urine >= 1.030 (1.005-1.025); Urine Blood Negative (Negative); Urine Ketones Trace mg/dL (Negative); Urine Protein Trace mg/dL (Neg-Trace)
--- NOTE | 2024-01-20 12:14 | MHC.CARE ---
Pt was accepted to [facility] by [facility] for today 01/20/24. ETA is [facility]. HBM will call pod RN for report ([phone]). The accepting provider is Dr. Hinton and the address is [address] [place] [address] [place] [id number]. Pod RN and CARE team have been notified.
--- NOTE | 2024-01-20 13:15 | PC.NURSE ---
Report given to RN at [facility]
[2024-01-20 14:28] VITALS: BP 122/79; PULSE 68; RESP 13; TEMP 36.6; O2SAT 95
== END 2024-01-20 14:57 ==
PROVIDERS: Emergency Provider Emergency Medicine Emergency Medical Services
DX: F14.94 Cocaine use, unspecified with cocaine-induced mood disorder (principal); R51.9 Headache, unspecified; R00.2 Palpitations; R45.851 Suicidal ideations; F14.90 Cocaine use, unspecified, uncomplicated; F32.A Depression, unspecified; Z79.899 Other long term (current) drug therapy
CPT/HCPCS: 36415; 70450; 80053; 80307; 81003; 84484; 85025; 93005; 99285; S9485

== ENCOUNTER → 2024-01-20 01:34 | Outpatient (BNV) | payer OTHER, SELFPAY | PROVIDERS: Emergency Provider Emergency Medicine Emergency Medical Services; Visit Provider Internal Medicine | DX: R00.2 Palpitations (principal) | CPT/HCPCS: 93010 ==

== ENCOUNTER → 2024-01-20 11:51 | Outpatient (BNV) | payer OTHER, SELFPAY | PROVIDERS: Emergency Provider Emergency Medicine Emergency Medical Services; Visit Provider Radiology Diagnostic Radiology | DX: R51.9 Headache, unspecified (principal) | CPT/HCPCS: 70450 ==

== ENCOUNTER 2024-11-27 13:16 | Inpatient (IN) | payer OTHER, SELFPAY ==
--- OUTSIDE RECORDS SUMMARY | 2018-02-08 09:52 | XMS_ITS | Continuity of Care Document ---
Author Organization [facility] Address [address] [place] [address] Phone Care Team Providers Care Senior Technical Architect Name Role Phone Unavailable Unavailable Unavailable Medications Medication Instructions Dosage Effective Dates (start - stop) Status Comments lisinopril 10 mg tablet take 1 tablet (1 0MG) by oral route every day 10 MG - Active divalproex 500 mg tablet,delayed release take 1 tablet (500MG) by oral route 2 times every day 500 MG - Active chlorpromazine 50 mg tablet take 1 tablet (50MG) by oral route once daily at bedtime 50 MG - Active chlorpromazine 100 mg tablet take 1 tablet (100MG) by oral route once daily at bedtime 100 MG - Active propranolol 40 mg tablet take 2 tablet (80MG) by oral route at bedtime 40 MG - Active Procedures Procedure Date Outreach Outreach OFFICE/OUTPATIENT VISIT, [facility] Advance Directives Directive Yes / No Effective Date File Name No Information Encounters Encounter Description Practice Location Reason(s) For Visit Diagnoses Date Provider Providers Copied on Encounter [facility], [address] [place] [address], [id number] , [place] tel: [phone] 63 [facility] No Information 8 No Information [facility], [address] [place] [address], [id number] , [place] tel: [phone] [facility] 63 [facility] Unspecified psychosocial circumstanceEnabli ng Diagnosis [address] Junior Brown[address] [place] [address], [id number], [place]. tel:[phone] OFFICE/OUTPA TIENT VISIT, NEW [facility], [address] [place] [address], [id number] , [place] tel: [phone] [facility] care (chief complaint) Schizophre sven (chief complaint) hypertensi on (chief complaint) ObesityRoutine Medical ExamUnspecified type schizophrenia, chronic stateHypertension, BenignTOBACCO USE DISORD-UNSPRoutine Medical Exam [id number] 5 No Information Family History Family Member Type Diagnosis Age At Onset No Information Payers Payer name Insurance type Covered constitution party ID Authoriza tion(s) No Information Social History Type Description Quantity Date Captured Comments Sex Male Smoking Status No Information Chief Complaint And Reason For Visit No Information Reason For Referral Reason For Referral No Information Plan Of Treatment Date Type Action Status Goal Td vaccine. Due on due Goal Depression screening. Due on due Goal HIV Screen. Due on 18 due Goal Lipid panel. Due on 020 due Goal Tdap. Due on due Goal Influenza vaccine. Due on due History Of Present Illness Encounter Date Complaint History Of Prese nt Illness No Information Functional Status Date Functional Assessmen t No Information Instructions Date Instruction Additional Leonorr nery Physical activity counseling Rel ated to Obesity unspecified, BMI 30-39 Dietary counseling Related to Ob esity unspecified, BMI 30-39 Assessments Type Assessment Date No Information Patient Care Teams Name Effective Dates (start - stop) Status Members No Information
--- OUTSIDE RECORDS SUMMARY | 2024-11-25 03:00 | XMS_ITS | Encounter Summary ---
Author Organization [facility] Address [address] [place] [id number] Care Team Providers Care Senior Wealth Advisor Name Role Phone Physician, No Pcp Primary Care Provider Unavaila ble Reason for Visit * Reason Comments Psychiatric Evaluation States SI attempt Wednesday, took trazodone. Pt still states feeling suicidal Encounter Details Date Type Department Care Team (Late st Contact Info) Description 11/25/2024 3:00 AM EDT - 11/27/2024 1:00 PM EDT Emergency [facility] Emergency [address] [place] [id number] Uzma Davies MD [address] [place] [address] Carie Valdes MD [address] [place] [phone] Renny Shaffer MD [address] [place] [id number] Jacob Mcmahon MD [address] [place] [address] Intentional overdose of trazodone (CMS/HCC V24, CMS/HCC V28) (Primary Dx); Depression with suicidal ideation; Generalized anxiety disorder; Severe major depression without psychotic features (CMS/HCC V24, CMS/HCC V28); Stimulant dependence (CMS/HCC V24, CMS/HCC V28) Discharge Disposition: Psychiatric Hospital Social History Tobacco Use Types Packs/Day Years Used Date Smoking Tobacco: Every Day Cigarettes Smokeless Tobacco: Never Tobacco Cessation:Ready to Q uit: Not Asked; Counseling Given: Not Answered Sex and Gender Information Value Date Recorded Sex Assigned at Not on file Legal Sex Male 8:39 PM EST Gender Identity Not on file Sexual Orientation Not on file documented as of this encounter Last Filed Vital Signs Vital Sign Reading Time Taken Comments Blood Pressure 125/94 11/27/2024 11:51 AM EDT Pulse 58 11/27/2024 11:51 AM EDT Temperature 37 C (98.6 F) 11/27/2024 1:41 AM EDT Respiratory Rate 18 11/27/2024 8:14 AM EDT Oxygen Saturation 96% 11/27/2024 11:51 AM EDT Inhaled Oxygen Concentration - - Weight 113 kg (250 lb) 11/25/2024 2:53 AM EDT Height 188 cm (6' 2 ) 11/25/2024 2:53 AM EDT Body Mass Index 32.1 11/25/2024 2:53 AM EDT documented in this encounter Functional Status * Are you deaf or do you have serious difficulty hearing? Answer Date of Assessment Author No 11/25/2024 3:15 AM EDT Suhas Ridley RN * Are you blind or do you have serious difficulty seeing, even when wearing glasses? Answer Date of Assessment Author No 11/25/2024 3:15 AM EDT Suhas Ridley RN * Do you have serious difficulty walking or climbing stairs? Answer Date of Assessment Author No 11/25/2024 3:15 AM EDT Suhas Ridley RN * Do you have serious difficulty dressing or bathing? Answer Date of Assessment Author No 11/25/2024 3:15 AM EDT Suhas Ridley RN * Because of a physical, mental, or emotional condition, do you have serious difficulty doing errandsalone such as visiting the doctor? Answer Date of Assessment Author No 11/25/2024 3:15 AM EDT Suhas Ridley RN documented as of this encounter Mental Status * Because of a physical, mental, or emotional condition, do you have serious difficulty concentrating, remembering, or making decisions? (5 years old or older) Answer Entry Date Author No 11/25/2024 3:15 AM EDT Suhas Ridley RN documented in this encounter Medications at Time of Discharge amLODIPine (NORVASC) 10 mg tablet Take 1 tablet (10 mg total) by mouth 1 (one) time each day. NOT TAKING buPROPion XL (WELLBUTRIN XL) 150 mg 24 hr tabletIndications :anxiety with depression,Last filled 09/04 per pharmacy Take 1 tablet (150 mg total) by mouth 1 (one) time each day. Do not crush, chew, or split. clonazePAM (KlonoPIN) 1 mg tabletIndications :Anxiety Take 1 tablet (1 mg total) by mouth 1 (one) time each day. Max Daily Amount: 1 mg cloNIDine (CATAPRES) 0.1 mg tabletIndications :Anxiety Take 1 tablet (0.1 mg total) by mouth 2 (two) times a day. hydrOXYzine pamoate (VISTARIL) 50 mg capsuleIndication s:anxiety Take 1 capsule (50 mg total) by mouth 3 (three) times a day if needed for anxiety. lisinopriL (PRINIVIL,ZESTRIL ) 20 mg tablet Take 1 tablet (20 mg total) by mouth 1 (one) time each day. pantoprazole (PROTONIX) 40 mg EC tabletIndications :gastroesophageal reflux disease Take 1 tablet (40 mg total) by mouth 1 (one) time each day before breakfast. Do not crush, chew, or split. propranoloL (INDERAL) 10 mg tablet Take 1 tablet (10 mg total) by mouth 1 (one) time each day. QUEtiapine (SEROquel) 100 mg tabletIndications :generalized anxiety disorder Take 1 tablet (100 mg total) by mouth at bedtime. QUEtiapine (SEROquel) 25 mg tablet Take 1 tablet (25 mg total) by mouth if needed (PRN for anxiety/agitat ion). documented as of this encounter Discharge Disposition Disposition Code Departure Means Destination Comment [facility] m3 documented in this encounter Progress Notes * Carie Valdes MD - 11/27/2024 12:35 PM EDT Akin Stack Patient signed out to me today pending inpatient psychiatric placement due to SI with recent overdose. Patient accepted to [facility], unit M[address] by Dr Guillermo Whitmore, EMTALA signed. Screening EKG/Rhythm strip interpretation: normal sinus rhythm, HR 64 bpm, narrow complex, no acuteST changes * Maci Hector - 11/27/2024 11:15 AM EDT BED FOUND - Patient accepted to [facility], unit M3 by Dr Guillermo Whitmore, for today 11/27/24, ETA set for 1:30pm. * Uzma Davies MD - 11/27/2024 6:24 AM EDT Akin Stack This patient's care was signed out to me by the offgoing provider. Please see her/his note for further details regarding initial presentation, history of present illness, physical exam, and medical decision making. At time of signout, the following was pending: inpatient psychiatric placement ED Course as of 11/27/24 0624 Sat Nov 25, 2024 0424 Benzodiazepine Screen, Ur(!): Positive [EK] 0424 Cocaine Screen, Ur(!): Positive [EK] 0424 Cannabinoid (THC) Screen, Ur(!): Positive [EK] 0424 Fentanyl, Ur(!): Positive [EK] 1254 Patient requesting his home meds to be restarted. Has been months since he has been on his medications. Blood pressure is intermittently mildly elevated and it seems that he used to be on multiple antihypertensives. Also had been on high doses of Seroquel as well as Wellbutrin and benzodiazepine as needed. Will start low-dose amlodipine, started on lower dose of Seroquel, and utilize Ativan.. [AM] Brenda Nov 26, 2024 0148 Awaiting inpatient psychiatric placement for SI with recent overdose attempts. Patient was started back on his home meds earlier today [EK] 0539 No acute needs during my shift. Patient's care was handed over to the oncoming provider. [EK] Mon Nov 27, 2024 0512 No acute needs during my shift. Patient's care was handed over to the oncoming provider. [EK] ED Course User Index [AM] Carie Valdes MD [EK] Uzma Davies MD Clinical Impressions as of 11/27/24 0624 Depression with suicidal ideation Intentional overdose of trazodone ([facility] V24, [facility] V28) Generalized anxiety disorder Severe major depression without psychotic features ([facility] V24, [facility] V28) Stimulant dependence ([facility] V24, [facility] V28) No orders to display Labs Reviewed ACETAMINOPHEN LEVEL - Abnormal Result Value Acetaminophen Level <2.0 (*) SALICYLATE LEVEL - Abnormal Salicylate Level <1.7 (*) DRUG ABUSE SCREEN 8A PANEL, URINE - Abnormal Amphetamine Screen, Ur Negative Barbiturate Screen, Ur Negative Benzodiazepine Screen, Ur Positive (*) Cocaine Screen, Ur Positive (*) Opiate Screen, Ur Negative Cannabinoid (THC) Screen, Ur Positive (*) Oxycodone Screen, Ur Negative Fentanyl, Ur Positive (*) Narrative: Assay cutoffs: Amphetamines 1000 ng/mL Barbiturates 200 ng/mL Benzodiazepines 200 ng/mL Cocaine 300 ng/mL Fentanyl 1 ng/mL Opiates 300 ng/mL Oxycodone 100 ng/mL THC 50 ng/mL Semi-quantitative assay for screening purposes only. Unconfirmed screening result should not be used for non-medical purposes. *ALTERNATE METHOD CONFIRMATION DONE UPON REQUEST ONLY* CBC WITH AUTO DIFFERENTIAL - Abnormal WBC 11.8 (*) RBC 4.80 Hemoglobin 14.4 Hematocrit 42.1 MCV 88.1 MCH 30.1 MCHC 34.2 RDW 13.1 Platelets 229 MPV 10.2 NRBC 0.0 NRBC Absolute 0.00 Neutrophils Relative 73.9 Lymphocytes Relative 15.8 Monocytes Relative 9.3 Eosinophils Relative 0.2 Basophils Relative 0.4 Immature Granulocytes Relative 0.4 Neutrophils Absolute 8.69 (*) Lymphocytes Absolute 1.86 Monocytes Absolute 1.09 (*) Eosinophils Absolute 0.02 Basophils Absolute 0.05 Immature Granulocytes Absolute 0.05 (*) COMPREHENSIVE METABOLIC PANEL - Normal Sodium 142 Potassium 4.0 Chloride 108 CO2 26 Anion Gap 8 Glucose 98 BUN 17 Creatinine 1.21 eGFR 76 BUN/Creatinine Ratio 14.0 Calcium 9.2 AST (SGOT) 36 ALT (SGPT) 44 Alkaline Phosphatase 92 Total Protein 8.0 Albumin 4.4 Total Bilirubin 0.7 ETHANOL - Normal Ethanol Level <3 BUPRENORPHINE SCREEN, URINE - Normal Buprenorphine Screen Urine Negative Narrative: Assay cutoff 5 ng/mL Semi-quantitative assay for screening purposes only. Unconfirmed screening result should not be used for non-medical purposes. *ALTERNATE METHOD CONFIRMATION DONE UPON REQUEST ONLY* PHENCYCLIDINE, URINE - Normal PCP Scrn, Ur Negative METHADONE SCREEN, URINE - Normal Methadone Screen, Urine Negative CBC AND DIFFERENTIAL Narrative: The following orders were created for panel order CBC and differential. Procedure Abnormality Status --------- ------ CBC auto differential[[id number]] Abnormal Final result Please view results for these tests on the individual orders. Clinical Impression(s): Final diagnoses: [F32.A, R45.851] Depression with suicidal ideation [T43.212A] Intentional overdose of trazodone ([facility] V24, [facility] V28) [F41.1] Generalized anxiety disorder [F32.2] Severe major depression without psychotic features ([facility] V24, [facility] V28) [F15.20] Stimulant dependence ([facility] V24, [facility] V28) Send to Specialty Department Previous Medications AMLODIPINE (NORVASC) 10 MG TABLET Take 1 tablet (10 mg total) by mouth 1 (one) time each day. NOT TAKING BUPROPION XL (WELLBUTRIN XL) 150 MG 24 HR TABLET Take 1 tablet (150 mg total) by mouth 1 (one) timeeach day. Do not crush, chew, or split. CLONAZEPAM (KLONOPIN) 1 MG TABLET Take 1 tablet (1 mg total) by mouth 1 (one) time each day. Max Daily Amount: 1 mg CLONIDINE (CATAPRES) 0.1 MG TABLET Take 1 tablet (0.1 mg total) by mouth 2 (two) times a day. HYDROXYZINE PAMOATE (VISTARIL) 50 MG CAPSULE Take 1 capsule (50 mg total) by mouth 3 (three) times a day if needed for anxiety. LISINOPRIL (PRINIVIL,ZESTRIL) 20 MG TABLET Take 1 tablet (20 mg total) by mouth 1 (one) time each day. PANTOPRAZOLE (PROTONIX) 40 MG EC TABLET Take 1 tablet (40 mg total) by mouth 1 (one) time each day before breakfast. Do not crush, chew, or split. PROPRANOLOL (INDERAL) 10 MG TABLET Take 1 tablet (10 mg total) by mouth 1 (one) time each day. QUETIAPINE (SEROQUEL) 100 MG TABLET Take 1 tablet (100 mg total) by mouth at bedtime. QUETIAPINE (SEROQUEL) 25 MG TABLET Take 1 tablet (25 mg total) by mouth if needed (PRN for anxiety/agitation). ED Medication Administration from 11/25/2024 0246 to 11/27/2024 0624 Date/Time Order Dose Route Action Action by 11/25/2024 1304 EDT amLODIPine (NORVASC) tablet 5 mg 5 mg oral Given Natalie, K 11/25/2024 1304 EDT LORazepam (ATIVAN) tablet 2 mg 2 mg oral Given Natalie, K 11/26/2024 0939 EDT LORazepam (ATIVAN) tablet 2 mg 2 mg oral Given [place], A 11/26/20242006 EDT LORazepam (ATIVAN) tablet 2 mg 2 mg oral Given [place], L 11/26/2024 0941 EDT amLODIPine (NORVASC) tablet 10 mg 10 mg oral Given [place], A 11/25/20242014 EDT QUEtiapine (SEROquel) tablet 100 mg 100 mg oral Given Rach, T 11/26/20242006 EDT QUEtiapine (SEROquel) tablet 100 mg 100 mg oral Given [place], L 11/25/20242014 EDT buPROPion XL (WELLBUTRIN XL) 24 hr tablet 150 mg 150 mg oral Given Rach, T 11/26/2024 0941 EDT buPROPion XL (WELLBUTRIN XL) 24 hr tablet 150 mg 150 mg oral Given [place], A 11/25/20242015 EDT cloNIDine (CATAPRES) tablet 0.1 mg 0.1 mg oral Given Rach, T 11/26/2024 09 EDT cloNIDine (CATAPRES) tablet 0.1 mg 0.1 mg oral Given [place], A 11/26/20242006 EDT cloNIDine (CATAPRES) tablet 0.1 mg 0.1 mg oral Given [place], L 11/26/2024 1548 EDT hydrOXYzine pamoate (VISTARIL) capsule 50 mg 50 mg oral Given [place], A 11/26/2024 0939 EDT lisinopriL (PRINIVIL,ZESTRIL) tablet 20 mg 20 mg oral Given [place], A 11/26/2024 0800 EDT pantoprazole (PROTONIX) EC tablet 40 mg 40 mg oral Not Given [place], A 11/26/2024 0940 EDT propranoloL (INDERAL) tablet 10 mg 10 mg oral Given [place], A * Calista Solorzano RN - 11/26/2024 4:19 PM EDT Patient informed by [facility] that he was submitted to two places for inpatient - asking ifthere is a way to be applied to more so he can get out of here quicker. Notified N - to be submitted to several more places if possible. * Uzma Davies MD - 11/26/2024 1:48 AM EDT [facility] Stack This patient's care was signed out to me by the offgoing provider. Please see her/his note for further details regarding initial presentation, history of present illness, physical exam, and medical decision making. At time of signout, the following was pending: inpatient psychiatric placement See latest ED course for events during my shift. ED Course as of 11/27/24 0512 [facility] Nov 25, 2024 0424 Benzodiazepine Screen, Ur(!): Positive [EK] 0424 Cocaine Screen, Ur(!): Positive [EK] 0424 Cannabinoid (THC) Screen, Ur(!): Positive [EK] 0424 Fentanyl, Ur(!): Positive [EK] 1254 Patient requesting his home meds to be restarted. Has been months since he has been on his medications. Blood pressure is intermittently mildly elevated and it seems that he used to be on multiple antihypertensives. Also had been on high doses of Seroquel as well as Wellbutrin and benzodiazepine as needed. Will start low-dose amlodipine, started on lower dose of Seroquel, and utilize Ativan.. [AM] Brenda Nov 26, 2024 0148 Awaiting inpatient psychiatric placement for SI with recent overdose attempts. Patient was started back on his home meds earlier today [EK] 0539 No acute needs during my shift. Patient's care was handed over to the oncoming provider. [EK] WedNov 27, 2024 0512 No acute needs during my shift. Patient's care was handed over to the oncoming provider. [EK] ED Course User Index [AM] Carie Valdes MD [EK] Uzma Davies MD Clinical Impressions as of 11/27/24 0512 Depression with suicidal ideation Intentional overdose of trazodone ([facility] V24, [facility] V28) Generalized anxiety disorder Severe major depression without psychotic features ([facility] V24, [facility] V28) Stimulant dependence ([facility] V24, [facility] V28) No orders to display Labs Reviewed ACETAMINOPHEN LEVEL - Abnormal Result Value Acetaminophen Level <2.0 (*) SALICYLATE LEVEL - Abnormal Salicylate Level <1.7 (*) DRUG ABUSE SCREEN 8A PANEL, URINE - Abnormal Amphetamine Screen, Ur Negative Barbiturate Screen, Ur Negative Benzodiazepine Screen, Ur Positive (*) Cocaine Screen, Ur Positive (*) Opiate Screen, Ur Negative Cannabinoid (THC) Screen, Ur Positive (*) Oxycodone Screen, Ur Negative Fentanyl, Ur Positive (*) Narrative: Assay cutoffs: Amphetamines 1000 ng/mL Barbiturates 200 ng/mL Benzodiazepines 200 ng/mL Cocaine 300 ng/mL Fentanyl 1 ng/mL Opiates 300 ng/mL Oxycodone 100 ng/mL THC 50 ng/mL Semi-quantitative assay for screening purposes only. Unconfirmed screening result should not be used for non-medical purposes. *ALTERNATE METHOD CONFIRMATION DONE UPON REQUEST ONLY* CBC WITH AUTO DIFFERENTIAL - Abnormal WBC 11.8 (*) RBC 4.80 Hemoglobin 14.4 Hematocrit 42.1 MCV 88.1 MCH 30.1 MCHC 34.2 RDW 13.1 Platelets 229 MPV 10.2 NRBC 0.0 NRBC Absolute 0.00 Neutrophils Relative 73.9 Lymphocytes Relative 15.8 Monocytes Relative 9.3 Eosinophils Relative 0.2 Basophils Relative 0.4 Immature Granulocytes Relative 0.4 Neutrophils Absolute 8.69 (*) Lymphocytes Absolute 1.86 Monocytes Absolute 1.09 (*) Eosinophils Absolute 0.02 Basophils Absolute 0.05 Immature Granulocytes Absolute 0.05 (*) COMPREHENSIVE METABOLIC PANEL - Normal Sodium 142 Potassium 4.0 Chloride 108 CO2 26 Anion Gap 8 Glucose 98 BUN 17 Creatinine 1.21 eGFR 76 BUN/Creatinine Ratio 14.0 Calcium 9.2 AST (SGOT) 36 ALT (SGPT) 44 Alkaline Phosphatase 92 Total Protein 8.0 Albumin 4.4 Total Bilirubin 0.7 ETHANOL - Normal Ethanol Level <3 BUPRENORPHINE SCREEN, URINE - Normal Buprenorphine Screen Urine Negative Narrative: Assay cutoff 5 ng/mL Semi-quantitative assay for screening purposes only. Unconfirmed screening result should not be used for non-medical purposes. *ALTERNATE METHOD CONFIRMATION DONE UPON REQUEST ONLY* PHENCYCLIDINE, URINE - Normal PCP Scrn, Ur Negative METHADONE SCREEN, URINE - Normal Methadone Screen, Urine Negative CBC AND DIFFERENTIAL Narrative: The following orders were created for panel order CBC and differential. Procedure Abnormality Status --------- ------ CBC auto differential[[id number]] Abnormal Final result Please view results for these tests on the individual orders. Clinical Impression(s): Final diagnoses: [F32.A, R45.851] Depression with suicidal ideation [T43.212A] Intentional overdose of trazodone ([facility]/HCC V24, CMS/HCC V28) [F41.1] Generalized anxiety disorder [F32.2] Severe major depression without psychotic features (CMS/HCC V24, CMS/HCC V28) [F15.20] Stimulant dependence (CMS/HCC V24, CMS/HCC V28) Send to Specialty Department Previous Medications AMLODIPINE (NORVASC) 10 MG TABLET Take 1 tablet (10 mg total) by mouth 1 (one) time each day. NOT TAKING BUPROPION XL (WELLBUTRIN XL) 150 MG 24 HR TABLET Take 1 tablet (150 mg total) by mouth 1 (one) timeeach day. Do not crush, chew, or split. CLONAZEPAM (KLONOPIN) 1 MG TABLET Take 1 tablet (1 mg total) by mouth 1 (one) time each day. Max Daily Amount: 1 mg CLONIDINE (CATAPRES) 0.1 MG TABLET Take 1 tablet (0.1 mg total) by mouth 2 (two) times a day. HYDROXYZINE PAMOATE (VISTARIL) 50 MG CAPSULE Take 1 capsule (50 mg total) by mouth 3 (three) times a day if needed for anxiety. LISINOPRIL (PRINIVIL,ZESTRIL) 20 MG TABLET Take 1 tablet (20 mg total) by mouth 1 (one) time each day. PANTOPRAZOLE (PROTONIX) 40 MG EC TABLET Take 1 tablet (40 mg total) by mouth 1 (one) time each day before breakfast. Do not crush, chew, or split. PROPRANOLOL (INDERAL) 10 MG TABLET Take 1 tablet (10 mg total) by mouth 1 (one) time each day. QUETIAPINE (SEROQUEL) 100 MG TABLET Take 1 tablet (100 mg total) by mouth at bedtime. QUETIAPINE (SEROQUEL) 25 MG TABLET Take 1 tablet (25 mg total) by mouth if needed (PRN for anxiety/agitation). ED Medication Administration from 11/25/2024 0246 to 11/26/2024 0837 Date/Time Order Dose Route Action Action by 11/25/2024 1304 EDT amLODIPine (NORVASC) tablet 5 mg 5 mg oral Given Natalie, K 11/25/2024 130 EDT LORazepam (ATIVAN) tablet 2 mg 2 mg oral Given Natalie, K 11/25/20242014 EDT QUEtiapine (SEROquel) tablet 100 mg 100 mg oral Given [place], T 11/25/20242014 EDT buPROPion XL (WELLBUTRIN XL) 24 hr tablet 150 mg 150 mg oral Given Rach, T 11/25/20242015 EDT cloNIDine (CATAPRES) tablet 0.1 mg 0.1 mg oral Given Rach, T * Bria Loyd RN - 11/25/2024 9:44 PM EDT Pt very pleasant, calm & cooperative. Pt given safety meal tray, crackers, elizabeth sis and water. Now resting comfortably in bed at this time. Assisted pt to comfort. Pt ambulated to restroom withsteady gait/steady balance. NAD noted, VSS. * Carie Valdes MD - 11/25/2024 10:58 AM EDT This patient was signed out to me by ED provider, Dr Davies. Briefly, the patient presented to the ED with SI/attempt. Signed out to me pending psychiatric placement. Patient is medically cleared at this time. ED Course as of 11/27/24 0705 [facility] Nov 25, 2024 042 Benzodiazepine Screen, Ur(!): Positive [EK] 0424 Cocaine Screen, Ur(!): Positive [EK] 0424 Cannabinoid (THC) Screen, Ur(!): Positive [EK] 0424 Fentanyl, Ur(!): Positive [EK] 1254 Patient requesting his home meds to be restarted. Has been months since he has been on his medications. Blood pressure is intermittently mildly elevated and it seems that he used to be on multiple antihypertensives. Also had been on high doses of Seroquel as well as Wellbutrin and benzodiazepine as needed. Will start low-dose amlodipine, started on lower dose of Seroquel, and utilize Ativan.. [AM] Sun Nov 26, 2024 0148 Awaiting inpatient psychiatric placement for SI with recent overdose attempts. Patient was started back on his home meds earlier today [EK] 0539 No acute needs during my shift. Patient's care was handed over to the oncoming provider. [EK] Mon Nov 27, 2024 0512 No acute needs during my shift. Patient's care was handed over to the oncoming provider. [EK] ED Course User Index [AM] Carie Valdes MD [EK] Uzma Davies MD Clinical Impressions as of 11/27/24 0705 Depression with suicidal ideation Intentional overdose of trazodone (CMS/HCC V24, CMS/HCC V28) Generalized anxiety disorder Severe major depression without psychotic features (CMS/HCC V24, CMS/HCC V28) Stimulant dependence (CMS/HCC V24, CMS/HCC V28) * Cecy Worthy RN - 11/25/2024 2:50 AM EDT PT REPORTS HE INGESTED 14-15 TRAZADONE ON WEDNESDAY NIGHT A SUICIDE ATTEMPT.FEELING +SI TODAY AND WOULD LIKE TO SPEAK WITH CRISIS * Uzma Davies MD - 11/25/2024 2:46 AM EDT EMERGENCY DEPARTMENT Provider Note Room: WI-B/WI-B Patient: Akin Stack PCP: No Pcp Physician Patient : 1980 Patient Department: [facility] EMERGENCY [address] [facility] [address] Dept: [phone] Triage Chief Complaint: Psychiatric Evaluation (States SI attempt Wednesday, took trazodone. Pt still states feeling suicidal ) History of Present Illness: 44-year-old male presenting with worsening depression, suicidal ideation. Patient states that on Wednesday of this week he took 14-15 trazodone tablets that he got from someone. States that he has been vomiting for the last couple of days, felt nauseated last night but has not vomited. Self presents due to still feeling suicidal. Denies any access to firearms. No homicidal ideation or auditory visual hallucinations. Was previously hospitalized in 2004 for SI. ED Course / Medications given / MDM: 44-year-old male presenting with suicidal ideation, suicide attempt earlier this week. He is well-appearing, no evidence of trauma. Urine studies as below. He is medically clear for crisis evaluation. I do suggest inpatient psychiatric placement given his suicide attempt this week. His care was handed over to the oncoming provider pending crisis evaluation. ED Course as of 11/27/24 0512 Sat Nov 25, 2024 0424 Benzodiazepine Screen, Ur(!): Positive [EK] 0424 Cocaine Screen, Ur(!): Positive [EK] 0424 Cannabinoid (THC) Screen, Ur(!): Positive [EK] 0424 Fentanyl, Ur(!): Positive [EK] 1254 Patient requesting his home meds to be restarted. Has been months since he has been on his medications. Blood pressure is intermittently mildly elevated and it seems that he used to be on multiple antihypertensives. Also had been on high doses of Seroquel as well as Wellbutrin and benzodiazepine as needed. Will start low-dose amlodipine, started on lower dose of Seroquel, and utilize Ativan.. [AM] Brenda Nov 26, 2024 0148 Awaiting inpatient psychiatric placement for SI with recent overdose attempts. Patient was started back on his home meds earlier today [EK] 0539 No acute needs during my shift. Patient's care was handed over to the oncoming provider. [EK] [facility] Nov 27, 2024 0512 No acute needs during my shift. Patient's care was handed over to the oncoming provider. [EK] ED Course User Index [AM] Carie Valdes MD [EK] Uzma Davies MD Clinical Impressions as of 11/27/24 0512 Depression with suicidal ideation Intentional overdose of trazodone ([facility] V24, [facility] V28) Generalized anxiety disorder Severe major depression without psychotic features (CMS/HCC V24, CMS/HCC V28) Stimulant dependence (CMS/HCC V24, CMS/HCC V28) Medications - No data to display Clinical Impression(s): Final diagnoses: [F32.A, R45.851] Depression with suicidal ideation [T43.212A] Intentional overdose of trazodone (CMS/[facility] V24, CMS/[facility] V28) Disposition: Send to Specialty Department Physical Examination: Temp: 37 ??C (98.6 ??F) BP: (!) 151/115 Heart Rate: 86 Resp: 16 SpO2: 95 % Nursing notes and vitals reviewed. Constitutional: Well-developed, well-nourished, and in no distress. Head: Normocephalic and atraumatic. Eyes: Conjunctivae and EOM are normal. Neck: Normal range of motion. No tracheal deviation present. Cardiovascular: Normal rate, extremities warm and well-perfused. Pulmonary/Chest: Effort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 overdose of trazodone ([facility] V24, [facility] V28)- Primary Depression with suicidal ideation Generalized anxiety disorder Severe major depression without psychotic features ([facility] V24, [facility] V28) Major depressive disorder, single episode, severe, without mention of psychotic behavior Stimulant dependence ([facility] V24, [facility] V28) documented in this encounter Administered Medications Inactive Administered Medications - up to 3 most recent administrations Medication Order MAR Action Action Date Dose Rate Site amLODIPine (NORVASC) tablet 10 mg 10 mg, oral, Daily, First dose on 11/26/24 at 0900 Given 11/27/2024 8:21 AM EDT 10 mg Given 11/26/2024 9:41 AM EDT 10 mg amLODIPine (NORVASC) tablet 5 mg 5 mg, oral, Daily, First dose on 11/25/24 at 1256 Given 11/25/2024 1:04 PM EDT 5 mg buPROPion XL (WELLBUTRIN XL) 24 hr tablet 150 mg 150 mg, oral, Daily, First dose on 11/25/24 at 1934, Do not crush, chew, or split., Indications: anxiety with depression, Last filled 09/04 per pharmacyIndications:anxiety with depression,Last filled 09/04 per pharmacy Given 11/27/2024 8:2 0 AM EDT 150 mg Given 11/26/2024 9:41 AM EDT 150 mg Given 11/25/2024 8:15 PM EDT 150 mg cloNIDine (CATAPRES) tablet 0.1 mg 0.1 mg, oral, 2 times daily, First dose on 11/25/24 at 2100, Indications: AnxietyIndications:Anxiety Given 11/27/2024 8:21 AM EDT 0.1 mg Given 11/26/2024 8:07 PM EDT 0.1 mg Given 11/26/2024 9:41 AM EDT 0.1 mg hydrOXYzine pamoate (VISTARIL) capsule 50 mg 50 mg, oral, 3 times daily PRN, anxiety, Starting on 11/25/24 at 1932, Indications: anxietyIndications:anxiety Given 11/26/2024 3:48 PM EDT 50 mg lisinopriL (PRINIVIL,ZESTRIL) tablet 20 mg 20 mg, oral, Daily, First dose on 11/26/24 at 0900 Given 11/27/2024 8:20 AM EDT 20 mg Given 11/26/2024 9:39 AM EDT 20 mg LORazepam (ATIVAN) tablet 2 mg 2 mg, oral, Every 8 hours PRN, anxiety, Starting on 11/25/24 at 1255 Given 11/27/2024 8:20 AM EDT 2 mg Given 11/26/2024 8:07 PM EDT 2 mg Given 11/26/2024 9:39 AM EDT 2 mg pantoprazole (PROTONIX) EC tablet 40 mg 40 mg, oral, Every morning before breakfast, First dose on 11/26/24 at 0700, Do not crush, chew, or split., Indications: gastroesophageal reflux diseaseIndications:gastroesophageal reflux disease Given 11/27/2024 8:09 AM EDT 40 mg propranoloL (INDERAL) tablet 10 mg 10 mg, oral, Daily, First dose on 11/26/24 at 0900 Given 11/27/2024 8:21 AM EDT 10 mg Given 11/26/2024 9:40 AM EDT 10 mg QUEtiapine (SEROquel) tablet 100 mg 100 mg, oral, Nightly, First dose on 11/25/24 at 2100, Indications: generalized anxiety disorderIndications:generalized anxiety disorder Given 11/26/2024 8:07 PM EDT 100 mg Given 11/25/2024 8:15 PM EDT 100 mg documented in this encounter Historical Medications * This list may reflect changes made after this encounter. QUEtiapine (SEROquel) 25 mg tablet Take 1 tablet (25 mg total) by mouth if needed (PRN for anxiety/agitat ion). QUEtiapine (SEROquel) 100 mg tabletIndications :generalized anxiety disorder Take 1 tablet (100 mg total) by mouth at bedtime. propranoloL (INDERAL) 10 mg tablet Take 1 tablet (10 mg total) by mouth 1 (one) time each day. pantoprazole (PROTONIX) 40 mg EC tabletIndications :gastroesophageal reflux disease Take 1 tablet (40 mg total) by mouth 1 (one) time each day before breakfast. Do not crush, chew, or split. hydrOXYzine pamoate (VISTARIL) 50 mg capsuleIndication s:anxiety Take 1 capsule (50 mg total) by mouth 3 (three) times a day if needed for anxiety. cloNIDine (CATAPRES) 0.1 mg tabletIndications :Anxiety Take 1 tablet (0.1 mg total) by mouth 2 (two) times a day. clonazePAM (KlonoPIN) 1 mg tabletIndications :Anxiety Take 1 tablet (1 mg total) by mouth 1 (one) time each day. Max Daily Amount: 1 mg buPROPion XL (WELLBUTRIN XL) 150 mg 24 hr tabletIndications :anxiety with depression,Last filled 09/04 per pharmacy Take 1 tablet (150 mg total) by mouth 1 (one) time each day. Do not crush, chew, or split. amLODIPine (NORVASC) 10 mg tablet Take 1 tablet (10 mg total) by mouth 1 (one) time each day. NOT TAKING lisinopriL (PRINIVIL,ZESTRIL ) 20 mg tablet Take 1 tablet (20 mg total) by mouth 1 (one) time each day. added in this encounter Active and Recently Administered Medications Times are shown in EDT. Scheduled Medication Order 11/25/2024 11/26/2024 11/27/2024 amLODIPine (NORVASC) tablet 10 mg 10 mg, oral, Daily, First dose on 11/26/24 at 0900 0941 (Given - Provider: Marisa Aceves RN) 0821 (Given - Provider: Maricel Ayala, SUKHI) amLODIPine (NORVASC) tablet 5 mg (CANCELED) 5 mg, oral, Daily, First dose on 11/25/24 at 1256 1304 (Given - Provider: Edda Estrada RN) buPROPion XL (WELLBUTRIN XL) 24 hr tablet 150 mg 150 mg, oral, Daily, First dose on 11/25/24 at 1934, Do not crush, chew, or split., Indications: anxiety with depression, Last filled 09/04 per pharmacy 2014 (Given - Provider: Bria Loyd RN) 0941 (Given - Provider: Marisa Aceves RN) 0820 (Given - Provider: Maricel Ayala RN) cloNIDine (CATAPRES) tablet 0.1 mg 0.1 mg, oral, 2 times daily, First dose on 11/25/24 at 2100, Indications: Anxiety 2015 (Given - Provider: Bria Loyd RN) 0941 (Given - Provider: Marisa Aceves, SUKHI)2006 (Given - Provider: Kendal Ridley RN) 0821 (Given - Provider: Maricel Ayala, RN) lisinopriL (PRINIVIL,ZESTRIL) tablet 20 mg 20 mg, oral, Daily, First dose on 11/26/24 at 0900 0939 (Given - Provider: Marisa Aceves RN) 0820 (Given - Provider: Maricel Ayala, SUKHI) pantoprazole (PROTONIX) EC tablet 40 mg 40 mg, oral, Every morning before breakfast, First dose on 11/26/24 at 0700, Do not crush, chew, or split., Indications: gastroesophageal reflux disease 0800 (Not Given - Provider: Marisa Aceves RN - Reason: Patient/Resident/Age nt refused - education provided ) 0809 (Given - Provider: Maricel Ayala RN - Comment: sleeping) propranoloL (INDERAL) tablet 10 mg 10 mg, oral, Daily, First dose on 11/26/24 at 0900 0940 (Given - Provider: Marisa Aceves RN) 0821 (Given - Provider: Maricel Ayala RN) QUEtiapine (SEROquel) tablet 100 mg 100 mg, oral, Nightly, First dose on 11/25/24 at 2100, Indications: generalized anxiety disorder 2014 (Given - Provider: Bria Loyd RN) 2006 (Given - Provider: Kendal Ridley RN) PRN Medication Order 11/25/2024 11/26/2024 11/27/2024 hydrOXYzine pamoate (VISTARIL) capsule 50 mg 50 mg, oral, 3 times daily PRN, anxiety, Starting on 11/25/24 at 1932, Indications: anxiety 1548 (Given - Provider: Marisa Aceves RN) LORazepam (ATIVAN) tablet 2 mg 2 mg, oral, Every 8 hours PRN, anxiety, Starting on 11/25/24 at 1255 1304 (Given - Provider: Edda Estrada RN) 0939 (Given - Provider: Marisa Aceves RN)2006 (Given - Provider: Kendal Ridley RN) 0820 (Given - Provider: Maricel Ayala RN) documented in this encounter Orders Medications Ordered That Tim ht Not Have Been Administered Count Last Ordered Date First Ordered Date QUEtiapine (SEROquel) tablet 25 mg 1 2024 Consult Count Last Ordered Date First Orde red Date IP CONSULT TO STAKING ENGINEER 1 11/25/2024 documented in this encounter Care Teams Senior Wealth Advisor Relationship Specialty Start Date End Date Physician, No Pcp PCP - General 11/25/24 documented as of this encounter
[2024-11-27 14:43] VITALS: BP 135/89; PULSE 75; RESP 18; TEMP 36.9; O2SAT 97
--- NOTE | 2024-11-27 14:54 | HO.PM.IMCN ---
History of Present Illness Data of Consult Service Date: 11/27/24 Primary Care Provider: Unknown Physician HPI Reason for consult: Medical management [facility] Medical History Cocaine use disorder Opioid use disorder Polysubstance use disorder Suicidal ideation Schizoaffective disorder, bipolar type PTSD (post-traumatic stress disorder) Social History Household Members: None Housing: Homeless Do you presently have visiting nurse or other home services: No Alcohol intake: current Alcohol intake frequency: 3 or more drinks per day Alcohol type: beer Patient Tobacco Use Status: Never used Tobacco Substance Use Type: Crack/Cocaine Advance Directives: No Advance Directives Information Provided: Yes service: No Sexual orientation: Did not discuss Meds Allergies Allergy/AdvReac Type Severity Reaction Status Date / Time No Known Allergies Allergy Verified 01/20/24 01:22 Active Medications: Current Medications Acetaminophen (Acetaminophen 325 Mg Tablet) 650 mg PO Q6H PRN PRN Reason: Headache/Pain, Scale 1-10 Al Hydroxide/Mg Hydroxide (Magnesium Hydrox/Alum Hydrox 30 Ml Oral.Susp) 30 ml PO Q6H PRN PRN Reason: Heartburn/Nausea Hydroxyzine HCl (Hydroxyzine Hcl 25 Mg Tablet) 25 mg PO Q6H PRN PRN Reason: mild anxiety Magnesium Hydroxide (Milk Of Magnesia 30 Ml Oral.Susp) 30 ml PO DAILY PRN PRN Reason: Constipation Nicotine Polacrilex (Nicotine Polacrilex 2 Mg Gum) 2 mg BUCCAL Q2H PRN PRN Reason: Nicotine Cravings Trazodone HCl (Trazodone Hcl 50 Mg Tablet) 50 mg PO BEDTIME MRX1 PRN PRN Reason: Insomnia Physical Exam Vital Signs and Narrative: Vital Signs: Last Vital Signs Temp 98.5 F 11/27/24 14:43 Pulse 75 11/27/24 14:43 Resp 18 11/27/24 14:43 BP 135/89 11/27/24 14:43 Pulse Ox 97 11/27/24 14:43 O2 Del Method Room Air 11/27/24 14:43
--- NOTE | 2024-11-27 15:01 | PC.ADMIT ---
Pt is a 44 y/o male admitted from [facility] for depression with SI on a CV and then signed a 3 day notice. Pt was A&O X4, calm and cooperative. Pt was being non compliant with medications for over a month and his goal is to get his medications renewed. Pt denied SI During admission assessment and said, I lied so I could get in the hospital and get medications ordered. Pt asked about previous SI attempt and he said, I lied then too. Pt denied SI and says he has no plan or intent to harm himself or others. Pt completed nusrsing assessment and met with the provider. When meeting with the provider he requested Klonopin and when declined he insisted on being discharged. Provider to discharge pt.
--- NOTE | 2024-11-27 15:05 | HO.PSYADMNOT ---
HPI Date of Service: 11/27/24 Chief Complaint: depression HPI Narrative: per [facility] ED eval, pt self-presented with c/o depression and anxiety with SI. reported he had intentionally overdosed on 14-15 100 mg trazodone pills several days prior to presentation. he reports having been nauseated for a couple days but otherwise OK. he came to the hospital eventually because he continued to feel suicidal after. medically cleared, seen by crisis. utox POS for benzo, cocaine, cannabis, fentanyl. on interview by crisis staff at [facility], pt c/o feeling overwhelmed due to conflict with family members, whom he described as shunning him because they believed he had bipolar disorder. he also reported having lost his job at [employer] about 2 weeks prior. he has only been in the area for 6 months, having come out from [facility], and he has no social supports. needs to establish mental healthcare in the area, interested in therapy. history reviewed, meds reviewed. history as recorded about aside from pt stated he has never had a suicide attempt and that he did NOT take excess trazodone the other day and only told that to ED staff because he knew it would get him admitted and expedite referrals and/or scripts. he became upset when MD informed him MD would not prescribe klonopin, stating the only thing that works for his anxiety/panic attacks are xanax and klonopin. he stated he had tried SSRIs, ECT, and everything else and knows what works for him. he denied SI and expressed the desire to discharge from the hospital if no klonopin were forthcoming, saying, i'll just find someone else to prescribe it for me. he was informed he would be provided referral info for walk-in clinics. Past Psychiatric History: IP: reports about 10 prior. reports MRE was at [facility] in august of 2024. Shannan-received ECT which was not helpful-he does not want to have consultation. Diana Taylor Arbour. OP: No current alliance. had been seeing Dr. Smith in [place]. SA: Hx 2020 via cutting. to MD pt denied any h/o SA. [facility] eval indicates h/o SA via overdose in 2004. SIB: denies Sx Hx: Report hx of jack, no perceptual alterations, +paranoia at times, no delusional content Medical Evaluation Reviewed: Yes [facility] Medical History Cocaine use disorder Opioid use disorder Polysubstance use disorder Suicidal ideation Schizoaffective disorder, bipolar type PTSD (post-traumatic stress disorder) Family History: denies Social History: Born in [place], raised by both parents. One older sister Attend high school however did not graduate or obtain GED Denies current relationship or children living in [facility] for the past 6 months, lost job at [employer] 2 weeks ago. lives in own apartment. Substance History: tobacco - 3 cigs per day alcohol - none in 2 months. h/o misuse. cocaine - none in 2 months aside from 1-time lapse last week. utox POS. opioids - denies Hx. utox fentanyl POS. believes it was from cocaine. cannabis - none in 2 months aside from 1-time lapse last week. benzo - reports script for klonopin 1 TID PRN anxiety. utox POS. Trauma History: denies Diagnostics Vital Signs (24Hr): Vital Signs - 24 hr 11/27/24 14:43 Temperature 98.5 F Pulse Rate 75 Respiratory Rate 18 Blood Pressure 135/89 Pulse Oximetry 97 Oxygen Delivery Method Room Air Meds/Allergies Allergies Allergies Allergy/AdvReac Type Severity Reaction Status Date / Time No Known Allergies Allergy Verified 01/20/24 01:22 Mental Status Exam Mental Status Exam Narrative: long lynch, disheveled, tattoos. hospital attire. no PMA/PMR. speech nml rate, amount, loudness. decreased prosody. thoughts linear and logical without delusions or paranoia. affect constricted, hypo-intense, non-labile. mood upset because i wanted to be discharged from the ER; i thought this would have been taken care of by now. denies SI/SIBI/HI/AVH. Assessment & Plan Assessment & Plan (1) Malingering: Status: Acute Code(s): Z76.5 - Malingerer [conscious simulation] (2) Cocaine use disorder: Status: Acute Code(s): F14.10 - Cocaine abuse, uncomplicated Plan provide walk-in clinic information. discharge. Patient educated on: diagnosis, medication risk/benefits, substance abuse and therapeutic strategies Reason for continued inpatient stay Substantial Risk for: stable for discharge Statement Statement: I have reviewed the history and physical and performed a pertinent examination on my patient. No changes have occurred unless specified. If the History and Physical was not performed prior to admission, the Hospitalist's service will be consulted for completing the admission physical. Time Spent With Patient Time: Total time managing care of this patient today __75__ minutes.
--- NOTE | 2024-11-27 15:22 | P.DS_ITS ---
DS: Providers Provider Date of Service: 11/27/24 Date of admission: 11/27/24 13:16 Date of discharge: 11/27/24 Primary care physician: Unknown Physician Consults: 11/27/24 14:50 Consult to Hospitalist Routine Comment: Consulting Provider: [facility] Reason For Exam: OSH admission DS: Diagnosis Discharge Diagnosis (1) Malingering: Status: Acute (2) Cocaine use disorder: Status: Acute DS: Medications Discharge Medications Home Medications: Previous Rx's ?Medication ?Instructions ?Recorded amlodipine 5 mg tablet 5 mg PO DAILY 30 days #30 ta bs 01/01/23 bupropion HCl 300 mg 24 hr tablet, 300 mg PO QAM 30 da ys #30 tabs 01/01/23 extended release lisinopril 20 mg tablet 20 mg PO DAILY 30 days #30 t abs 01/01/23 trazodone 100 mg tablet 100 mg PO BEDTIME PRN insomn ia 30 01/01/23 days #30 tabs Mental Status Exam Mental Status Exam Narrative: long lynch, disheveled, tattoos. hospital attire. no PMA/PMR. speech nml rate, amount, loudness. decreased prosody. thoughts linear and logical without delusions or paranoia. affect constricted, hypo-intense, non-labile. mood upset because i wanted to be discharged from the ER; i thought this would have been taken care of by now. denies SI/SIBI/HI/AVH. DS: Summary Hospital Course Hospital Course: HPI Narrative: per [facility] ED eval, pt self-presented with c/o depression and anxiety with SI. reported he had intentionally overdosed on 14-15 100 mg trazodone pills several days prior to presentation. he reports having been nauseated for a couple days but otherwise OK. he came to the hospital eventually because he continued to feel suicidal after. medically cleared, seen by crisis. utox POS for benzo, cocaine, cannabis, fentanyl. on interview by crisis staff at [facility], pt c/o feeling overwhelmed due to conflict with family members, whom he described as shunning him because they believed he had bipolar disorder. he also reported having lost his job at [email or web address] about 2 weeks prior. he has only been in the area for 6 months, having come out from [facility], and he has no social supports. needs to establish mental healthcare in the area, interested in therapy. history reviewed, meds reviewed. history as recorded about aside from pt stated he has never had a suicide attempt and that he did NOT take excess trazodone the other day and only told that to ED staff because he knew it would get him admitted and expedite referrals and/or scripts. he became upset when MD informed him MD would not prescribe klonopin, stating the only thing that works for his anxiety/panic attacks are xanax and klonopin. he stated he had tried SSRIs, ECT, and everything else and knows what works for him. he denied SI and expressed the desire to discharge from the hospital if no klonopin were forthcoming, saying, i'll just find someone else to prescribe it for me. he was informed he would be provided referral info for walk-in clinics. Past Psychiatric History: IP: reports about 10 prior. reports MRE was at [facility] in august of 2024. Shannan-received ECT which was not helpful-he does not want to have consultation. Diana Taylor Arbour. OP: No current alliance. had been seeing Dr. Smith in [place]. SA: Hx 2020 via cutting. to MD pt denied any h/o SA. [facility] eval indicates h/o SA via overdose in 2004. SIB: denies Sx Hx: Report hx of jack, no perceptual alterations, +paranoia at times, no delusional content Medical Evaluation Reviewed: Yes [facility] Medical History Cocaine use disorder Opioid use disorder Polysubstance use disorder Suicidal ideation Schizoaffective disorder, bipolar type PTSD (post-traumatic stress disorder) Family History: denies Social History: Born in [place], raised by both parents. One older sister Attend high school however did not graduate or obtain GED Denies current relationship or children living in [facility] for the past 6 months, lost job at [email or web address] 2 weeks ago. lives in own apartment. Substance History: tobacco - 3 cigs per day alcohol - none in 2 months. h/o misuse. cocaine - none in 2 months aside from 1-time lapse last week. utox POS. opioids - denies Hx. utox fentanyl POS. believes it was from cocaine. cannabis - none in 2 months aside from 1-time lapse last week. benzo - reports script for klonopin 1 TID PRN anxiety. utox POS. Trauma History: denies Assessment & Plan (1) Malingering: Status: Acute Code(s): Z76.5 - Malingerer [conscious simulation] (2) Cocaine use disorder: Status: Acute Code(s): F14.10 - Cocaine abuse, uncomplicated Plan provided walk-in clinic information. discharged. Patient educated on: diagnosis, medication risk/benefits, substance abuse and therapeutic strategies Time Spent with Patient Time attestation: Total time managing care of this patient today __75__ minutes. Discharge Plan Discharge Anticipated Discharge Date/Time: 11/27/24 15:01 Patient Disposition: Home, Self-Care Discharge Diagnosis: Malingering Depressive Disorder NOS Anxiety Disorder NOS Cocaine Use Disorder Referrals: Therapy & Psychiatry [Other] - 1 Week Referral Note: *You can present to the clinic above, Wednesday through Wednesday during the hours of 10am until 12pm, in order to obtain outpatient mental health providers. Therapy & Psychiatry [Other] - 1 Week Referral Note: *You can present to the clinic above, Wednesday through Wednesday during the hours of 8am until 8pm, in order to obtain outpatient mental health providers. Physician,Unknown J [Primary Care Provider, Medical] - 1 Week Discharge Medications: Continued amlodipine 5 mg Tablet 5 mg PO DAILY 30 Days Qty: 30 0RF Protocol: Hold for SBP< HOLD for SBP < : 90 lisinopril 20 mg tablet 20 mg PO DAILY 30 Days Qty: 30 0RF trazodone 100 mg tablet 100 mg PO BEDTIME PRN (Reason: insomnia) 30 Days Qty: 30 0RF bupropion HCl 300 mg tablet extended release 24 hr 300 mg PO QAM 30 Days Qty: 30 0RF Discontinued propranolol 20 mg Tablet 20 mg PO BID 30 Days Qty: 60 0RF Protocol: Hold for SBP/HR < HOLD for SBP < : 90 HOLD for HR < : 60 topiramate 25 mg tablet 25 mg PO DAILY 30 Days Qty: 30 0RF chlorpromazine 50 mg tablet 75 mg PO TID PRN (Reason: anxiety) 30 Days Qty: 135 0RF Discharge Orders: Discharge Order (Routine); Ordered 11/27/24 Ordered By: Guillermo Whitmore Diet: Advance to usual diet Activity on Discharge: As tolerated Stand Alone Forms: Patient Portal Discharge page, Community Support Print Language: Czech Care Plan Goals: acquire mental health services in the outpatient treatment setting Health Concerns: none Plan of Treatment: attend walk-in clinic hours for mental health provider as provided in this document Assessment: not at imminent risk of harm to self or others
--- OUTSIDE RECORDS SUMMARY | 2024-11-27 15:39 | XMS_ITS | Clinical Summary ---
Author Organization [facility] Address [address] [place] [address] Phone Care Team Providers Care Violin Maker Hand Name Role Phone Physician, No Pcp Primary Care Provider Unavaila ble Allergies No known active allergies Medications lisinopriL (PRINIVIL,ZESTR IL) 20 mg tablet Take 1 tablet (20 mg total) by mouth 1 (one) time each day. Active amLODIPine (NORVASC) 10 mg tablet Take 1 tablet (10 mg total) by mouth 1 (one) time each day. NOT TAKING Active buPROPion XL (WELLBUTRIN XL) 150 mg 24 hr tabletIndicatio ns:anxiety with depression,Last filled 09/04 per pharmacy Take 1 tablet (150 mg total) by mouth 1 (one) time each day. Do not crush, chew, or split. Active clonazePAM (KlonoPIN) 1 mg tabletIndicatio ns:Anxiety Take 1 tablet (1 mg total) by mouth 1 (one) time each day. Max Daily Amount: 1 mg Active cloNIDine (CATAPRES) 0.1 mg tabletIndicatio ns:Anxiety Take 1 tablet (0.1 mg total) by mouth 2 (two) times a day. Active hydrOXYzine pamoate (VISTARIL) 50 mg capsuleIndicati ons:anxiety Take 1 capsule (50 mg total) by mouth 3 (three) times a day if needed for anxiety. Active pantoprazole (PROTONIX) 40 mg EC tabletIndicatio ns:gastroesopha geal reflux disease Take 1 tablet (40 mg total) by mouth 1 (one) time each day before breakfast. Do not crush, chew, or split. Active propranoloL (INDERAL) 10 mg tablet Take 1 tablet (10 mg total) by mouth 1 (one) time each day. Active QUEtiapine (SEROquel) 100 mg tabletIndicatio ns:generalized anxiety disorder Take 1 tablet (100 mg total) by mouth at bedtime. Active QUEtiapine (SEROquel) 25 mg tablet Take 1 tablet (25 mg total) by mouth if needed (PRN for anxiety/agit ation). Active Encounters Date Type Department Care Team Description 11/25/2024 3:00 AM EDT - 11/27/2024 1:[address] [facility] [address] [place] [address] Uzma Davies MD Mogul, Ashley, MD Wyman, Tim, MD Lawrenz, Jacob Campoverde MD Intentional overdose of trazodone ([facility] V24, [facility] V28) (Primary Dx); Depression with suicidal ideation; Generalized anxiety disorder; Severe major depression without psychotic features ([facility] V24, [facility] V28); Stimulant dependence ([facility] V24, [facility] V28) Discharge Disposition: Psychiatric Hospital from Last 3 Months Medical History Medical History Date Comments Hypertension Generalized anxiety disorder 11/27/2024 per [facility] assessment Major depressive disorder with single episode per [facility] assessment Social History Tobacco Use Types Packs/Day Years Used Date Smoking Tobacco: Every Day Cigarettes Smokeless Tobacco: Never Tobacco Cessation:Ready to Q uit: Not Asked; Counseling Given: Not Answered Sex and Gender Information Value Date Recorded Sex Assigned at Not on file Legal Sex Male 8:39 PM EST Gender Identity Not on file Sexual Orientation Not on file Obstetrics History Last Filed Vital Signs Vital Sign Reading [...] Mass Index 32.1 11/25/2024 2:53 AM EDT Plan of Treatment Health Maintenance Due Date Last Done Comments DTaP,Tdap,and Td Vaccines (1 - Tdap) 2000 Hepatitis A Vaccines (1 of 2 - Risk 2-dose series) 2000 Hepatitis B Vaccines (1 of 3 - 19+ 3-dose series) 2000 Pneumococcal Vaccine: Pediat rics (0 to 5 Years) and At-Risk Patients (6 to 49 Years) (1 of 2 - PCV) 2000 Cholesterol Screening (Lipid Panel) 04/16/2023 HIV Screening 04/16/2023 Hepatitis C Screening 04/16/2023 Social Influencers of Health Screening 04/16/2023 Depression Screening 03/22/2024 COVID-19 Vaccine (1 - 2023-2 5 season) 2024 Influenza Vaccine (#1) 2024 Hypertension/CHF/CAD Annual BMP Blood Test 11/25/2025 11/25/2024 HIB Vaccines Aged Out No longer eligi ble based on patient's age to complete this topic HPV Vaccines Aged Out No longer eligi ble based on patient's age to complete this topic IPV Vaccines Aged Out No longer eligi ble based on patient's age to complete this topic MMR Vaccines Aged Out No longer eligi ble based on patient's age to complete this topic Meningococcal ACWY Vaccine Aged Out N o longer eligible based on patient's age to complete this topic Meningococcal B Vaccine Aged Out No l onger eligible based on patient's age to complete this topic RSV Immunization Patients Un gabriella 20 months Aged Out No longer eligible b ased on patient's age to complete this topic Varicella Vaccines Aged Out No longer eligible based on patient's age to complete this topic Procedures Procedure Name Priority Date/Time Associated Diagnosis Comments ECG 12-LEAD STAT 11/27/2024 10:15 AM EDT CBC WITH AUTO DIFFERENTIAL STAT 11/25/2024 3:11 AM EDT METHADONE SCREEN, URINE STAT 11/25/2024 3:11 AM EDT PHENCYCLIDINE, URINE STAT 11/25/2024 3:11 AM EDT BUPRENORPHINE SCREEN, URINE STAT 11/25/2024 3:11 AM EDT DRUG ABUSE SCREEN 8A PANEL, URINE STAT 11/25/2024 3:11 AM EDT SALICYLATE LEVEL STAT 11/25/2024 3:11 AM EDT ACETAMINOPHEN LEVEL STAT 11/25/2024 3 :11 AM EDT ETHANOL STAT 11/25/2024 3:11 AM EDT COMPREHENSIVE METABOLIC PANEL STAT 11/25/2024 3:11 AM EDT CBC AND DIFFERENTIAL STAT 11/25/2024 3:11 AM EDT from Last 3 Months Results * (ABNORMAL) Drug abuse screen 8a panel, urine (11/25/2024 3:11 AM EDT) [facility] Amphetamine Screen, Ur Negative Negative LAB CHEMISTRY METHOD 5 4:16 AM T [facility] Comment:Certain OTC medicati ons containing ephedrine, phenylephrine, pseudoephedrine and phenylpropanolamine can cause false positive results. Barbiturate Screen, Ur Negative Negative LAB CHEMISTRY METHOD 5 4:16 AM T [facility] Benzodiazepine Screen, Ur Positive(A ) Negative LAB CHEMISTRY METHOD 5 4:16 AM [facility] Cocaine Screen, Ur Positive(A ) Negative LAB CHEMISTRY METHOD 5 4:16 AM [facility] Opiate Screen, Ur Negative Negative LAB CHEMISTRY METHOD 5 4:16 AM [facility] Cannabinoid (THC) Screen, Ur Positive(A ) Negative LAB CHEMISTRY METHOD 5 4:16 AM [facility] Comment:Specimens from patie nts taking pantoprazole sodium (Protonix) have been shown to produce false positive results. Oxycodone Screen, Ur Negative Negative LAB CHEMISTRY METHOD 4:16 AM EDT [facility] Fentanyl, Ur Positive(A ) Negative LAB CHEMISTRY METHOD 4:16 AM EDT [facility] Urine Urine specimen obtained by clean catch procedure / Unknown Non-blood Collection / Unknown 11/25/2024 3:11 AM EDT 11/25/2024 3:31 AM EDT [facility] - 11/25/2024 4:16 AM EDT Assay [...] ult [facility] [address] [place] [address], * Buprenorphine screen, urine (11/25/2024 3:11 AM EDT) Buprenorphine Screen Urine Negative Negative LAB CHEMISTRY METHOD 11/25/2024 4:01 AM EDT [facility] Urine Urine specimen obtained by clean catch procedure / Unknown Non-blood Collection / Unknown 11/25/2024 3:11 AM EDT 11/25/2024 3:31 AM EDT [facility] - 11/25/2024 4:01 AM EDT Assay cutoff 5 ng/mL Semi-quantitative assay for screening purposes only. Unconfirmed screening result should not be used for non-medical purposes. *ALTERNATE METHOD CONFIRMATION DONE UPON REQUEST ONLY* Uzma Davies MD LAB URINE ORDERABLES Final Res ult Performing Organization Address City/[facility]/ZIP Co de Phone Number [facility] [address] [place] [address], [place] [phone] * Methadone, urine (11/25/2024 3:11 AM EDT) Pathologist [facility] Methadone Screen, Urine Negative Negative LAB CHEMISTRY [...] 3:11 AM EDT 11/25/2024 3:31 AM EDT Uzma Davies MD LAB URINE ORDERABLES Final Res ult Performing Organization Address City/[facility]/ZIP Co de Phone Number [facility] [address] [place] [address], [place] [phone] * (ABNORMAL) CBC auto differential (11/25/2024 3:11 AM EDT) [facility] WBC 11.8(H) 4.8 - 10.8 K/[facility] LAB HEMETOLOGY METHOD 11/25/2024 3:55 AM EDT [facility] RBC 4.80 4.50 - 5.50 M/[facility] LAB HEMETOLOGY METHOD 11/25/2024 3:55 AM EDT [facility] Hemoglobin 14.4 13.5 - 17.5 g/dL LAB HEMETOLOGY METHOD 11/25/2024 3:55 AM EDT [facility] Hematocrit 42.1 42.0 - 54.0 % LAB HEMETOLOGY METHOD 11/25/2024 3:55 AM EDT [facility] MCV 88.1 79.0 - 98.0 FL LAB HEMETOLOGY METHOD 11/25/2024 3:55 AM EDT [facility] MCH 30.1 27.0 - 32.0 pcg LAB HEMETOLOGY METHOD 11/25/2024 3:55 AM [facility] MCHC 34.2 32.0 - 37.0 g/dL LAB HEMETOLOGY METHOD 11/25/2024 3:55 AM [facility] RDW 13.1 11.0 - 15.0 % LAB HEMETOLOGY METHOD 11/25/2024 3:55 AM [facility] Platelets 229 130 - 400 K/mcL LAB HEMETOLOGY METHOD 11/25/2024 3:55 AM [facility] MPV 10.2 7.0 - 11.0 FL LAB HEMETOLOGY METHOD 11/25/2024 3:55 AM [facility] NRBC 0.0 <1.0 % LAB HEMETOLOGY METHOD 11/25/2024 3:55 AM [facility] NRBC Absolute 0.00 <0.10 K/mcL LAB HEMETOLOGY METHOD 11/25/2024 3:55 AM [facility] Neutrophils Relative 73.9 % LAB HEMETOLOGY METHOD 11/25/2024 3:55 AM [facility] Lymphocytes Relative 15.8 % LAB HEMETOLOGY METHOD 11/25/2024 3:55 AM [facility] Monocytes Relative 9.3 % LAB HEMETOLOGY METHOD 11/25/2024 3:55 AM [facility] Eosinophils Relative 0.2 % LAB HEMETOLOGY METHOD 11/25/2024 3:55 AM [facility] Basophils Relative 0.4 % LAB HEMETOLOGY METHOD 11/25/2024 3:55 AM [facility] Immature Granulocytes Relative 0.4 % LAB HEMETOLOGY METHOD 11/25/2024 3:55 AM EDT [facility] Neutrophils Absolute 8.69(H) 1.50 - 7.00 K/[facility] LAB HEMETOLOGY METHOD 11/25/2024 3:55 AM EDT [facility] Lymphocytes Absolute 1.86 1.00 - 5.00 K/[facility] LAB HEMETOLOGY METHOD 11/25/2024 3:55 AM EDT [facility] Monocytes Absolute 1.09(H) 0.20 - 1.00 K/[facility] LAB HEMETOLOGY METHOD 11/25/2024 3:55 AM EDT [facility] Eosinophils Absolute 0.02 0.00 - 0.50 K/[facility] LAB HEMETOLOGY METHOD 11/25[facility]2024 [facility] Basophils Absolute 0.05 0.00 - 0.20 K/[facility] LAB HEMETOLOGY METHOD 11/25/2024 3:55 AM EDT [facility] Immature Granulocytes Absolute 0.05(H) 0.00 - 0.03 K/mcL LAB HEMETOLOGY METHOD 11/25/2024 3:55 AM [facility] Blood Venous blood specimen / Unknown Venipuncture / Unknown 11/25/2024 3:11 AM EDT 11/25/2024 3:32 AM EDT us Uzma Davies MD LAB BLOOD ORDERABLES Final Res ult [facility] [address] [place] [address], * Phencyclidine, urine (11/25/2024 3:11 AM EDT) [...] ORDERABLES Final Res ult Performing Organization Address [facility] de Phone Number [facility] [address] [place] [address], [place] [phone] * Ethanol (11/25/2024 3:11 AM EDT) Ethanol Level <3 0 - 10 mg/dL LAB CHEMISTRY METHOD 11/25/2024 4:01 AM EDT [facility] Blood Venous blood specimen / Unknown Venipuncture / Unknown 11/25/2024 3:11 AM EDT 11/25/2024 3:31 AM EDT us Uzma Davies MD LAB BLOOD ORDERABLES Final Res ult Performing Organization Address [facility] de Phone Number [facility] [address] [place] [address], [place] [phone] * (ABNORMAL) Acetaminophen level (11/25/2024 3:11 AM EDT) Acetaminophen Level <2.0(L) 10.0 - 30.0 mcg/mL LAB CHEMISTRY METHOD 11/25/2024 4:02 AM EDT [facility] Blood Venous blood specimen / Unknown Venipuncture / Unknown 11/25/2024 3:11 AM EDT 11/25/2024 3:31 AM EDT us Uzma Davies MD LAB BLOOD ORDERABLES Final Res ult [facility] [address] [place] [address], * (ABNORMAL) Salicylate level (11/25/2024 3:11 AM EDT) Salicylate Level <1.7(L) 2.0 - 29.0 mg/dL LAB CHEMISTRY METHOD 11/25/2024 4:01 AM EDT [facility] Blood Venous blood specimen / Unknown Venipuncture / Unknown 11/25/2024 3:11 AM EDT 11/25/2024 3:31 AM EDT Uzma Davies MD LAB BLOOD ORDERABLES Final Res ult [facility] [address] [place] [address], * Comprehensive metabolic panel (11/25/2024 3:11 AM EDT) Sodium 142 133 - 145 mmol/L LAB CHEMISTRY METHOD 11/25/2024 4:01 AM [facility] Potassium 4.0 3.5 - 5.5 mmol/L LAB CHEMISTRY METHOD 11/25/2024 4:01 AM [facility] Chloride 108 96 - 110 mmol/L LAB CHEMISTRY METHOD 11/25/2024 4:01 AM [facility] CO2 26 21 - 32 mmol/L LAB CHEMISTRY METHOD 11/25/2024 4:01 AM [facility] Anion Gap 8 3 - 11 LAB CHEMISTRY METHOD 11/25/2024 4:01 AM [facility] Glucose 98 70 - 100 mg/dL LAB CHEMISTRY METHOD 11/25/2024 4:01 AM [facility] BUN 17 5 - 25 mg/dL LAB CHEMISTRY METHOD 11/25/2024 4:01 AM [facility] Creatinine 1.21 0.70 - 1.30 mg/dL LAB CHEMISTRY METHOD 11/25/2024 4:01 AM [facility] eGFR 76 >=60 mL/min/1. 73m2 LAB CHEMISTRY METHOD 11/25/2024 4:01 AM [facility] Comment:Calculation based on the Chronic Kidney Disease Epidemiology Collaboration (CKD-EPI) equation refit without adjustment for race. BUN/Creatinine Ratio 14.0 LAB CHEMISTRY METHOD 11/25/2024 4:01 AM [facility] Calcium 9.2 8.5 - 10.5 mg/dL LAB CHEMISTRY METHOD 11/25/2024 4:01 AM [facility] AST (SGOT) 36 10 - 42 unit/L LAB CHEMISTRY METHOD 11/25/2024 4:01 AM [facility] ALT (SGPT) 44 10 - 60 unit/L LAB CHEMISTRY METHOD 11/25/2024 4:01 AM [facility] Alkaline Phosphatase 92 42 - 121 unit/L LAB CHEMISTRY METHOD 11/25/2024 4:01 AM [facility] Total Protein 8.0 6.0 - 8.0 g/dL LAB CHEMISTRY METHOD 11/25/2024 4:01 AM [facility] Albumin 4.4 3.2 - 5.0 g/dL LAB CHEMISTRY METHOD 11/25/2024 4:01 AM [facility] Total Bilirubin 0.7 0.0 - 1.4 mg/dL LAB CHEMISTRY METHOD 11/25/2024 4:01 AM [facility] Blood Venous blood specimen / Unknown Venipuncture / Unknown 11/25/2024 3:11 AM EDT 11/25/2024 3:31 AM EDT us Uzma Davies MD LAB BLOOD ORDERABLES Final Res ult [facility] [address] [place] [address], [place] [phone] from Last 3 Months Insurance [facility] [employer] Care Teams Violin Maker Hand Relationship Specialty Start Date End Date Physician, No Pcp PCP - General 11/25/24
== END 2024-11-27 15:42 | disposition home or self-care (01) | DRG 861 ==
PROVIDERS: Admitting Provider Psychiatry & Neurology Psychiatry; Visit Provider Psychiatry & Neurology Psychiatry
DX: Z76.5 Malingerer [conscious simulation] (principal); F14.10 Cocaine abuse, uncomplicated; F32.A Depression, unspecified; F41.9 Anxiety disorder, unspecified; Z79.899 Other long term (current) drug therapy

== ENCOUNTER → 2024-11-27 13:16 | Outpatient (BNV) | payer OTHER, SELFPAY | PROVIDERS: Admitting Provider Psychiatry & Neurology Psychiatry; Visit Provider Psychiatry & Neurology Psychiatry | DX: F14.10 Cocaine abuse, uncomplicated (principal); Z76.5 Malingerer [conscious simulation] | CPT/HCPCS: 90792; 99499 ==

== ENCOUNTER 2024-12-06 03:37 | Inpatient (IN) | payer OTHER, SELFPAY ==
--- OUTSIDE RECORDS SUMMARY | 2018-02-08 09:52 | XMS_ITS | Continuity of Care Document ---
Author Organization [facility] Address [address] [place] [address] Phone Care Team Providers Care Eye Specialist Name Role Phone Unavailable Unavailable Unavailable Medications [...] Procedures Procedure Date Outreach Outreach OFFICE/OUTPATIENT VISIT, [facility] Advance Directives Directive Yes / No Effective Date File Name No Information Encounters Encounter Description Practice Location Reason(s) For Visit Diagnoses Date Provider Providers Copied on Encounter [facility], [address] [place] [address], [id number] , [place] tel: [phone] [facility] No Information 8 No Information [facility], [address] [place] [address], [id number] , [place] tel: [phone] [facility] [address] [facility] Unspecified psychosocial circumstanceEnabli ng Diagnosis 5 Junior Brown. [address] [place] [address], [id number], [place]. tel:[phone] OFFICE/OUTPA TIENT VISIT, [facility], [address] [place] [address], [id number] , [place] tel: [phone] [facility] care (chief complaint) Schizophre sven (chief complaint) [...] t No Information Instructions Date Instruction Additional Infor nery Dietary counseling Related to Ob esity unspecified, BMI 30-39 Physical activity counseling Rel ated to Obesity unspecified, BMI 30-39 Assessments Type Assessment Date No Information Patient Care Teams Name Effective Dates (start - stop) Status Members No Information
[2024-12-06 03:59] VITALS: BP 113/74; BP 118/84; PULSE 86; PULSE 87; RESP 17; TEMP 36.6; O2SAT 96; BMI 32.1
--- NOTE | 2024-12-06 04:00 | PC.NURSE ---
Patient BIBA from the [facility] for evaluation of worsening depression, SI with plan to OD on non-specific medications. Patient denies HI/AH/VH. Patient alert and oriented x4, pleasant and cooperative. Patient was changed into behavioral pod attire, belongings secured in locker # 1. Lab drawn and sent to lab for processing. Patient provided with sandwich, elizabeth sis, and apple juice, tolerated well. Patient currently resting in bed, offers no complaints at present, awaiting to be seen by .
[2024-12-06 04:16] LABS: Hematocrit 41.1 % (42.0-52.0); Hemoglobin 14.5 g/dl (14.0-18.0); Imm Gran Abs Auto 0.03 X10*3/uL (0.00-0.03); Imm Gran Pct Auto 0.3 % (0.0-0.4); Lymphocytes Absolute Auto 2.3 X10*3/uL (1.2-4.9); MANUAL DIFF FLAG NO; Mean Corpuscular HGB Conc 35.3 g/dl (31.0-36.0); Mean Corpuscular Hemoglobin 30.3 pg (27.0-33.0); Mean Corpuscular Volume 85.8 fL (80.0-98.0); NRBC Abs Auto 0.000 X10*3/uL (0.0-0.012); NRBC Pct Auto 0.0 /100WBC (0.0-0.2); Platelet Count 215 X10*3/uL (160-400); Red Blood Count 4.79 X10*6/uL (4.60-5.80); White Blood Count 11.5 X10*3/uL (4.8-10.8)
[2024-12-06 04:29] LABS: Alanine Aminotransferase 33 U/L (0-40); Albumin Level 4.6 g/dL (3.5-5.0); Alkaline Phosphatase 80 U/L (39-117); Anion Gap 14 (12-20); Aspartate Amino Transferase 35 U/L (5-37); Blood Urea Nitrogen 19 mg/dL (9-16); Calcium 9.1 mg/dL (8.4-10.2); Carbon Dioxide 24 mmol/L (22-29); Chloride 107 mmol/L (96-108); Creatinine Clr Calc Pharmacy 95.8; Estimated Glomerular Filt Rate 59; Potassium 3.6 mmol/L (3.3-5.1); Sodium 141 mmol/L (135-145); Total Protein 8.0 g/dL (6.5-8.0)
--- NOTE | 2024-12-06 04:39 | ED_ITS ---
HPI - Psych General Chief Complaint: Psychiatric Symptoms Stated Complaint: SI STATEMENTS Time Seen by Provider: 12/06/24 04:39 Source: patient and EMS Mode of arrival: EMS Limitations: no limitations History of Present Illness ED Provider: Dr. Amy Paz HPI Narrative: 44-year-old male with a history of housing and security, polysubstance use disorder, PTSD, anxiety and depression presenting via EMS from the streets [facility] with passive suicidality, depression without a plan to harm himself ongoing for ?weeks?. Admits that he has not been taking any of his medicines for the last several months. Has a therapist but has not been going to therapy. Denies visual or auditory hallucinations. Denies alochol or illiciit substance use. Denies recent illness including cough or cold-type symptoms, fever, chest pain, difficulty breathing, abdominal pain, nausea, vomiting, diarrhea. States that ?I feel hungry and thirsty?. Related Data Home Medications ?Medication ?Instructions ?Recorded ?Confirmed Protonix 40 mg PO DAILY 12/06/2411/20 amlodipine 5 mg tablet 10 mg PO DAILY 12/06/2411/20 clonazepam 1 mg PO DAILY 12/06/2412/06 clonidine HCl 0.1 mg tablet 0.1 mg PO BID PRN Anxiety 12/06/24 12/06/24 propranolol 10 mg PO DAILY 12/06/2411/20 quetiapine 100 mg tablet (Seroquel) 100 mg PO BID 11/2012/06/24 Previous Rx's ?Medication ?Instructions ?Recorded bupropion HCl 300 mg 24 hr tablet, 300 mg PO QAM 30 da ys #30 tabs 01/01/23 extended release lisinopril 20 mg tablet 20 mg PO DAILY 30 days #30 t abs 01/01/23 Allergies Allergy/AdvReac Type Severity Reaction Status Date / Time No Known Allergies Allergy Verified 12/06/24 04:01 Review of Systems 2 Review of Systems: As per HPI, full review of systems performed and negative but for the above mentioned pertinent positives and negatives. PMFSH Past Medical History Medical History Cocaine use disorder Opioid use disorder Polysubstance use disorder Suicidal ideation Schizoaffective disorder, bipolar type PTSD (post-traumatic stress disorder) Social History Social History Household Members: None Housing: Apartment Do you presently have visiting nurse or other home services: No Alcohol intake: current Alcohol intake frequency: former alcohol drinker Alcohol type: beer Patient Tobacco Use Status: Never used Tobacco Tobacco use type: Cigarette Cigarettes Per Day: 0.5 Years Smoked: 10 Smoked in Last 30 Days: Yes Second Hand Smoke Exposure: No Use of substances other than those prescribed or required for medical reasons: Yes Substance Use Type: Marijuana Advance Directives: No Advance Directives Information Provided: No Nutrition Risks: No Nutritional Risk service: No Sexual orientation: Did not discuss Physical Exam 2 Exam: Exam: GENERAL: Unkempt, no acute distress. SKIN: Normal skin color for ethnicity, warm, dry, no rashes noted. HEENT:? Normocephalic, atraumatic, no stridor, posterior oropharynx nonerythematous, dentition intact, EOMI. NECK: Soft, supple, full ROM, midline structures nontender, no step-offs, no deformities, no lymphadenopathy. CHEST: Heart regular rate and rhythm, no murmurs, symmetric chest rise and fall. PULMONARY: Clear to auscultation bilaterally, no labored breathing, no wheezes/rhales/rhonchi. ABDOMINAL: Soft, nondistended, nontender, positive bowel sounds in all quadrants. : Deferred. MUSCULOSKELETAL: Normal tone, full range of motion, no deformities, no peripheral edema. NEURO: Alert and oriented x3, CN II through XII intact, equal strength and sensation bilateral upper and lower extremities, no focal neurologic deficits.? PSYCHIATRIC: Flat affect, poor eye contact, withdrawn Vital Signs: Vital Signs: Last Vital Signs Temp 98.7 F 12/06/24 18:10 Pulse 73 12/06/24 18:10 Resp 16 12/06/24 18:10 BP 128/88 12/06/24 18:10 Pulse Ox 97 12/06/24 18:10 O2 Del Method Room Air 12/06/24 18:10 BMI result Body Mass Index 32.1 Course Reevaluation(s) Reevaluation #1: 7:53 AM 12/06/2024 (Dr. Gil Tran): Patient in physician observation for psychiatric evaluation.? No acute events reported overnight. No current complaints. VS stable Reevaluation #2: Time: 20:13 Date: 12/06/24 Provider: Sallie Lopez MD Physician observation ended at 2004. Patient to be admitted as inpatient to psychiatry. Time: 20:13 Medications Administered Discontinued Medications Generic Name Dose Route Start Last Admin Trade Name Freq PRN Reason Stop Dose Admin Quetiapine Fumarate 100 mg 12/06/24 18:24 12/06/24 18:28 Quetiapine Fumarate 100 Mg Tablet PO 12/06/24 18:25 100 mg ONCE ONE Administration Medical Decision Making Medical Decision Making MDM Narrative: Patient presents with psychologic complaints. Differential diagnosis includes suicidal ideations, homicidal ideations, depression, anxiety, mood disorder, decompensated mental illnesses such as schizophrenia or bipolar disorder, medication noncompliance, among many others. Medical clearance protocol was initiated. Differential Diagnosis Differential Diagnoses: The differential diagnosis associated with the presentation includes (As above) Admission/Observation Consideration of admission/observation: Escalation of care including admission/observation considered Consult Healthcare Provider Management of the patient was discussed with: Behavioral Health Provider Lab Data 12/06/24 04:10 12/06/24 04:10 Labs: Lab Results 12/06/24 12/06/24 Range/Units 04:10 08:56 WBC 11.5 H (4.8-10.8) X10*3/uL RBC 4.79 (4.60-5.80) X10*6/uL Hgb 14.5 (14.0-18.0) g/dl Hct 41.1 L (42.0-52.0) % MCV 85.8 (80.0-98.0) fL MCH 30.3 (27.0-33.0) pg MCHC 35.3 (31.0-36.0) g/dl RDW 13.0 (11.0-16.0) % Plt Count 215 (160-400) X10*3/uL MPV 9.1 L (9.4-12.4) fL Immature Gran % (Auto) 0.3 (0.0-0.4) % Neut % (Auto) 67.7 (45-73) % Lymph % (Auto) 19.6 L (20-40) % [place] % (Auto) 11.1 H (2-11) % Eos % (Auto) 1.0 (0-4) % Baso % (Auto) 0.3 (0-2) % Lymph # (Auto) 2.3 (1.2-4.9) X10*3/uL [place] # (Auto) 1.3 H (0.1-1.2) X10*3/uL Eos # (Auto) 0.1 (0.0-0.4) X10*3/uL Baso # (Auto) 0.0 (0.0-0.2) X10*3/uL Abs Immat Gran (auto) 0.03 (0.00-0.03) X10*3/uL Absolute Neuts (auto) 7.8 (2.0-8.3) x10*3/uL Absolute Nucleated RBC 0.000 (0.0-0.012) X10*3/uL Nucleated RBC % (auto) 0.0 (0.0-0.2) /100WBC Sodium 141 (135-145) mmol/L Potassium 3.6 (3.3-5.1) mmol/L Chloride 107 (96-108) mmol/L Carbon Dioxide 24 (22-29) mmol/L Anion Gap 14 (12-20) BUN 19 H (9-16) mg/dL Creatinine 1.33 (0.5-1.4) mg/dL Estim Creat Clear Calc 95.8 Estimated GFR 59 Random Glucose 108 (60-115) mg/dL Calcium 9.1 (8.4-10.2) mg/dL Total Bilirubin 0.8 (0.0-1.0) mg/dL AST 35 (5-37) U/L ALT 33 (0-40) U/L Alkaline Phosphatase 80 (39-117) U/L Total Protein 8.0 (6.5-8.0) g/dL Albumin 4.6 (3.5-5.0) g/dL Urine Color Yellow Urine Appearance Clear Urine pH 5.5 (5.0-9.0) Ur Specific [place] 1.025 (1.005-1.025) Urine Protein Negative (Neg-Trace) mg/dL Urine Glucose (UA) Negative (Negative) mg/dL Urine Ketones Negative (Negative) mg/dL Urine Blood Negative (Negative) Urine Nitrite Negative (Negative) Ur Leukocyte Esterase Trace H (Negative) Urine RBC 0-2 (0-2) /HPF Urine WBC 0-5 (0-5) /HPF Ur Squamous Epith Cells 0-2 (0-2) /HPF Urine Bacteria None Seen (None Seen) Hyaline Casts 11-20 (0-2) /LPF Urine Opiates Screen Not Detected (Not Detect) Ur Buprenorphine Scrn Not Detected (Not Detect) ng/mL Ur Oxycodone Screen Not Detected (Not Detect) ng/mL Urine Methadone Screen Not Detected (Not Detect) ng/mL Urine Fentanyl Screen POSITIVE H (Not Detect) Ur Barbiturates Screen Not Detected (Not Detect) Ur Phencyclidine Scrn Not Detected (Not Detect) Ur Amphetamines Screen Not Detected (Not Detect) U Benzodiazepines Scrn POSITIVE H (Not Detect) Urine Cocaine Screen POSITIVE H (Not Detect) U Marijuana (THC) Screen Not Detected (Not Detect) Ethyl Alcohol 22 mg/dL Discharge Plan Discharge Clinical Impression: Suicidal ideation, Depression, Housing insecurity Patient Disposition: Admitted As Inpatient Interventions: [place]-Suicide Risk Severity Scale Last Done: 12/06/24 10:04
--- NOTE | 2024-12-06 07:30 | ECG_ITS ---
Test Reason : med clearNCE Blood Pressure : */* mmHG Vent. Rate : 75 BPM Atrial Rate : 75 BPM P-R Int : 156 ms QRS Dur : 100 ms QT Int : 378 ms P-R-T Axes : 46 -11 10 degrees QTcB Int : 422 ms Normal sinus rhythm T wave abnormality, consider anterior ischemia Abnormal ECG When compared with ECG of 20-Jan-2024 01:34, T wave inversion now evident in Anterior leads Referred By: Gil Tran Electronically Signed By: BRAYDEN FLANAGAN
--- OUTSIDE RECORDS SUMMARY | 2024-12-06 07:56 | XMS_ITS | Clinical Summary ---
Author Organization [facility] Address [address] [place] [address] Phone Care Team Providers Care Environmental Restoration Planner Name Role Phone Physician, No Pcp Primary [...] - 11/27/2024 1:00 PM EDT Emergency [facility] Emergency [address] [place] [address] Uzma Davies MD Mogul, MD Deena Darnell Tim, MD Lawrenz, Jacob Campoverde MD Intentional overdose of trazodone ([facility] V24, [facility] V28) (Primary Dx); Depression with suicidal ideation; Generalized anxiety disorder; Severe major depression without psychotic features (CMS/HCC V24, CMS/[facility] V28); Stimulant dependence (CMS/[facility] V24, CMS/[facility] V28) Discharge Disposition: Psychiatric Hospital from Last 3 Months Medical History Medical History Date Comments Hypertension Generalized anxiety disorder 11/27/2024 per [facility] assessment Major depressive disorder with single episode per [facility] assessment Social History Tobacco Use Types Packs/Day [...] 11/25/2024 2:53 AM EDT Plan of Treatment Upcoming Encounters Date Type Department Care Team (Late st Contact Info) Description 12/15/2024 4:30 PM EDT Appointment [facility] Endoscopy [address] [place] [address] Basil Hansen MD [address] [facility] [address] [place] [address] Health Maintenance Due Date Last Done Comments [...] Screening 04/16/2023 Depression Screening 03/22/2024 COVID-19 Vaccine ( - 2023-2 5 season) 2024 Influenza Vaccine [...] EDT from Last 3 Months Results * ECG 12 lead (11/27/2024 10:15 AM EDT) Ventricular Rate ECG 64 BPM GEMUSE Atrial Rate 64 BPM GEMUSE P-R Interval 156 ms GEMUSE QRS Duration 96 ms GEMUSE Q-T Interval 404 ms GEMUSE QTc 416 ms GEMUSE P Wave [place] 37 degrees GEMUSE R [place] -16 degrees GEMUSE T [place] 7 degrees GEMUSE ECG Interpretation Normal sinus rhythm Normal ECG No previous ECGs available Confirmed by ITA FORD ([id number]) on 11/27/2024 7:35:39 PM GEMUSE 11/27/2024 10:1 5 AM EDT 11/27/2024 7:35 PM EDT us Uzma Davies MD ECG ORDERABLES Final Result GEMUSE * (ABNORMAL) Drug abuse screen 8a panel, urine (11/25/2024 3:11 AM EDT) Amphetamine Screen, Ur Negative Negative LAB CHEMISTRY METHOD 4:16 AM EDT [facility] Comment:Certain OTC medicati ons containing ephedrine, phenylephrine, pseudoephedrine and phenylpropanolamine can cause false positive results. Barbiturate Screen, Ur Negative Negative [facility] Benzodiazepine Screen, Ur Positive(A ) Negative LAB CHEMISTRY METHOD 4:16 AM [facility] Cocaine Screen, Ur Positive(A ) Negative LAB CHEMISTRY METHOD 4:16 AM [facility] Opiate Screen, Ur Negative Negative LAB CHEMISTRY METHOD 4:16 AM [facility] Cannabinoid (THC) Screen, Ur Positive(A ) Negative LAB CHEMISTRY METHOD 4:16 AM [facility] Comment:Specimens from patie nts taking pantoprazole sodium (Protonix) have been shown to produce false positive results. Oxycodone Screen, Ur Negative Negative LAB CHEMISTRY METHOD 4:16 AM [facility] Fentanyl, Ur Positive(A ) Negative LAB CHEMISTRY METHOD 4:16 AM [facility] Urine Urine specimen obtained by clean catch procedure / Unknown Non-blood Collection / Unknown 11/25/2024 3:11 AM EDT 11/25/2024 3:31 AM EDT Narrative [facility] - 11/25/2024 4:16 AM EDT [...] ORDERABLES Final Res ult Performing Organization Address [facility] Co de Phone Number [facility] [address] [place] [address], [place] [phone] * Buprenorphine screen, urine (11/25/2024 3:11 AM EDT) Pathologist [facility] Buprenorphine Screen Urine Negative Negative LAB CHEMISTRY METHOD 11/25/2024 4:01 AM EDT [facility] Urine Urine specimen obtained by clean catch procedure / Unknown Non-blood Collection / Unknown 11/25/2024 3:11 AM EDT 11/25/2024 3:31 AM EDT Narrative [facility] - 11/25/2024 4:01 AM EDT Assay cutoff 5 ng/mL Semi-quantitative assay for screening purposes only. Unconfirmed screening result should not be used for non-medical purposes. *ALTERNATE METHOD CONFIRMATION DONE UPON REQUEST ONLY* Uzma Davies MD LAB URINE ORDERABLES Final Res ult Performing Organization Address [facility] de Phone Number [facility] [address] [place] [address], [place] [phone] * Methadone, urine (11/25/2024 3:11 AM EDT) Methadone Screen, Urine Negative Negative LAB CHEMISTRY METHOD 11/25/2024 4:01 AM EDT [facility] Comment: Assay cutoff 300 ng/mL Semi-quantitative assay for screening purposes only. Unconfirmed screening result should not be used for non-medical purposes. *ALTERNATE METHOD CONFIRMATION DONE UPON REQUEST ONLY* Urine Urine specimen obtained by clean catch procedure / Unknown Non-blood Collection / Unknown 11/25/2024 3:11 AM EDT 11/25/2024 3:31 AM EDT Uzma Davies MD LAB URINE ORDERABLES Final Res ult [facility] [address] [place] [address], * (ABNORMAL) CBC auto differential (11/25/2024 3:11 AM EDT) WBC 11.8(H) 4.8 - 10.8 K/mcL LAB HEMETOLOGY METHOD 11/25/2024 3:55 AM EDT [facility] RBC 4.80 4.50 - 5.50 M/mcL LAB HEMETOLOGY METHOD 11/25/2024 3:55 AM EDT [facility] Hemoglobin 14.4 13.5 - 17.5 g/dL LAB HEMETOLOGY METHOD 11/25/2024 3:55 AM EDT [facility] Hematocrit 42.1 42.0 - 54.0 % LAB HEMETOLOGY METHOD 11/25[facility]2024 3[facility] MCV 88.1 79.0 - 98.0 FL LAB HEMETOLOGY METHOD 11/25/2024 3:55 AM EDT [facility] MCH 30.1 27.0 - 32.0 pcg LAB HEMETOLOGY METHOD 11/25[facility]2024 3[facility] MCHC 34.2 32.0 - 37.0 g/dL LAB HEMETOLOGY METHOD 11/25/2024 3:55 AM [facility] RDW 13.1 11.0 - 15.0 % LAB HEMETOLOGY METHOD 11/25/2024 3:55 AM EDT [facility] Platelets 229 130 - 400 K/mcL LAB HEMETOLOGY METHOD 11/25/2024 3:55 AM [facility] MPV 10.2 7.0 - 11.0 FL LAB HEMETOLOGY METHOD 11/25/2024 3:55 AM [facility] NRBC 0.0 <1.0 % LAB HEMETOLOGY METHOD 11/25/2024 3:55 AM [facility] NRBC Absolute 0.00 <0.10 K/mcL LAB HEMETOLOGY METHOD 11/25/2024 3:55 AM [facility] Neutrophils Relative 73.9 % LAB HEMETOLOGY METHOD 11/25/2024 3:55 AM [facility] Lymphocytes Relative 15.8 % LAB HEMETOLOGY METHOD 11/25/2024 3:55 AM [facility] Monocytes Relative 9.3 % LAB HEMETOLOGY METHOD 11/25/2024 3:55 AM [facility] Eosinophils Relative 0.2 % LAB HEMETOLOGY METHOD 11/25/2024 3:55 AM [facility] Basophils Relative 0.4 % LAB HEMETOLOGY METHOD 11/25/2024 3:55 AM [facility] Immature Granulocytes Relative 0.4 % LAB HEMETOLOGY METHOD 11/25/2024 3:55 AM [facility] Neutrophils Absolute 8.69(H) 1.50 - 7.00 K/mcL LAB HEMETOLOGY METHOD 11/25/2024 3:55 AM [facility] Lymphocytes Absolute 1.86 1.00 - 5.00 K/mcL LAB HEMETOLOGY METHOD 11/25/2024 3:55 AM [facility] Monocytes Absolute 1.09(H) 0.20 - 1.00 K/mcL LAB HEMETOLOGY METHOD 11/25/2024 3:55 AM EDT [facility] Eosinophils Absolute 0.02 0.00 - 0.50 K/[facility] LAB HEMETOLOGY METHOD 11/25/2024 3:55 AM EDT [facility] Basophils Absolute 0.05 0.00 - 0.20 K/mcL LAB HEMETOLOGY METHOD 11/25/2024 3:55 AM EDT [facility] Immature Granulocytes Absolute 0.05(H) 0.00 - 0.03 K/[facility] LAB HEMETOLOGY METHOD 11/25/2024 3:55 AM EDT [facility] Blood Venous blood specimen / Unknown Venipuncture / Unknown 11/25/2024 3:11 AM EDT 11/25/2024 3:32 AM EDT us Uzma Davies MD LAB BLOOD ORDERABLES Final Res ult Performing Organization Address City/[facility]/ZIP Co de Phone Number [facility] [address] [place] [address], [place] [phone] * Phencyclidine, urine (11/25/2024 3:11 AM EDT) PCP Scrn, Ur Negative Negative LAB CHEMISTRY METHOD 11/25/2024 4:01 AM EDT [facility] Comment: Assay cutoff 25 ng/mL [...] ORDERABLES Final Res ult Performing Organization Address City/[facility]/ZIP Co de Phone Number [facility] [address] [place] [address], [place] [phone] * Ethanol (11/25/2024 3:11 AM EDT) Ethanol Level <3 0 - 10 mg/dL LAB CHEMISTRY METHOD 11/25/2024 4:01 AM EDT [facility] Blood Venous blood specimen / Unknown Venipuncture / Unknown 11/25/2024 3:11 AM EDT 11/25/2024 3:31 AM EDT us Uzma Davies MD LAB BLOOD ORDERABLES Final Res ult Performing Organization Address [facility]/ZIP Co de Phone Number [facility] [address] [place] [address], [place] [phone] * (ABNORMAL) Acetaminophen level (11/25/2024 3:11 AM EDT) Acetaminophen Level <2.0(L) 10.0 - 30.0 mcg/mL LAB CHEMISTRY METHOD 11/25/2024 4:02 AM EDT [facility] Blood Venous blood specimen / Unknown Venipuncture / Unknown 11/25/2024 3:11 AM EDT 11/25/2024 3:31 AM EDT us Uzma Davies MD LAB BLOOD ORDERABLES Final Res ult Performing Organization Address [facility]/ZIP Co de Phone Number [facility] [address] [place] [address], [place] [phone] * (ABNORMAL) Salicylate level (11/25/2024 3:11 AM EDT) Salicylate Level <1.7(L) 2.0 - 29.0 mg/dL LAB CHEMISTRY METHOD 11/25/2024 4:01 AM EDT [facility] Blood Venous blood specimen / Unknown Venipuncture / Unknown 11/25/2024 3:11 AM EDT 11/25/2024 3:31 AM EDT us Uzma Davies MD LAB BLOOD ORDERABLES Final Res ult [facility] [address] [place] [address], [place] [phone] * Comprehensive metabolic panel (11/25/2024 3:11 AM EDT) Sodium 142 133 - 145 mmol/L LAB CHEMISTRY METHOD 11/25/2024 4:01 AM [facility] Potassium 4.0 3.5 - 5.5 mmol/L LAB CHEMISTRY METHOD 11/25/2024 4:01 AM [facility] Chloride 108 96 - 110 mmol/L LAB CHEMISTRY METHOD 11/25/2024 4:01 AM [facility] CO2 26 21 - 32 mmol/L LAB CHEMISTRY METHOD 11/25/2024 4:01 AM [facility] Anion Gap 8 3 - 11 LAB CHEMISTRY METHOD 11/25/2024 4:01 AM [facility] Glucose 98 70 - 100 mg/dL LAB CHEMISTRY METHOD 11/25/2024 4:01 AM [facility] BUN 17 5 - 25 mg/dL LAB CHEMISTRY METHOD 11/25/2024 4:01 AM [facility] Creatinine 1.21 0.70 - 1.30 mg/dL LAB CHEMISTRY METHOD 11/25/2024 4:01 AM [facility] eGFR 76 >=60 mL/min/1. 73m2 LAB CHEMISTRY METHOD 11/25/2024 4:01 AM [facility] Comment:Calculation based on the Chronic Kidney Disease Epidemiology Collaboration (CKD-EPI) equation refit without adjustment for race. BUN/Creatinine Ratio 14.0 LAB CHEMISTRY METHOD 11/25/2024 4:01 AM [facility] Calcium 9.2 8.5 - 10.5 mg/dL LAB CHEMISTRY METHOD 11/25/2024 4:01 AM [facility] AST (SGOT) 36 10 - 42 unit/L LAB CHEMISTRY METHOD 11/25/2024 4:01 AM [facility] ALT (SGPT) 44 10 - 60 unit/L LAB CHEMISTRY METHOD 11/25/2024 4:01 AM [facility] Alkaline Phosphatase 92 42 - 121 unit/L LAB CHEMISTRY METHOD 11/25/2024 4:01 AM [facility] Total Protein 8.0 6.0 - 8.0 g/dL LAB CHEMISTRY METHOD 11/25/2024 4:01 AM [facility] Albumin 4.4 3.2 - 5.0 g/dL LAB CHEMISTRY METHOD 11/25/2024 4:01 AM [facility] Total Bilirubin 0.7 0.0 - 1.4 mg/dL LAB CHEMISTRY METHOD 11/25/2024 4:01 AM [facility] Blood Venous blood specimen / Unknown Venipuncture / Unknown 11/25/2024 3:11 AM EDT 11/25/2024 3:31 AM EDT Uzma Davies MD LAB BLOOD ORDERABLES Final Res ult [facility] [address] [place] [address], from Last 3 Months Insurance [employer] Care Teams Environmental Restoration Planner Relationship Specialty Start Date End Date Physician, No Pcp PCP - General 11/25/24
--- NOTE | 2024-12-06 08:37 | MHC.CARE ---
Pt meets the criteria for IPLOC. Section 12a in chart. ED provider in agreement.
[2024-12-06 09:06] LABS: Appearance Urine Clear; Glucose Urine UA Negative (Negative); PH 5.5 (5.0-9.0); Specific Gravity - Urine 1.025 (1.005-1.025); UMIC TRIGGER UA YES
[2024-12-06 09:20] LABS: Cannabinoid Screen Urine Not Detected (Not Detect)
--- NOTE | 2024-12-06 09:31 | PC.NURSE ---
RN completed pt's med rec. Per patient, he picked up his meds at the [facility] on [address] in [place] 3 months ago. states since then he has been using [facility] [address] in [place]. I called [facility] and [facility] for lists. per patient he last took his meds three days ago but [facility] states he has not filled his meds. med rec completed with information given to me by patient and both pharmacies plus advising from inpatient Pharmacist at [facility].
--- NOTE | 2024-12-06 17:18 | PC.NURSE ---
Pt requesting home meds, concerned about his seroquel dose today. [place] TECHNICIAN made aware, med rec complete, awaiting response.
[2024-12-06 18:10] VITALS: BP 128/88; PULSE 73; RESP 16; TEMP 37.1; O2SAT 97
--- NOTE | 2024-12-06 18:20 | PC.NURSE ---
Upon attempting to move pt from room, pt became extremely agitated and began screaming slurs and profanities at staff. Security already in BH pod, pt then began posturing at staff and security stating and what the hell are you going to do? Fucking try me . Security successful in verbal deescalation. Pt still requesting seroquel dose, ED MD able to order. Seroquel administered. Inpt MD made aware, MD also aware of missing home medication orders. Awaiting response.
--- NOTE | 2024-12-06 19:24 | PC.NURSE ---
Assumed care of patient at 1845, patient sitting in common area in pod, previously agitated due to being removed from his room, pt is now calm and cooperative, after speaking with GRETCHEN Dc. Plan is for patient to go inpatient to [facility]
--- NOTE | 2024-12-06 19:30 | PHA.MEDREC ---
Pharmacy Consult ? Medication Reconciliation Pharmacy has reviewed the medication reconciliation completed by nursing. I contacted [facility] to confirm medications. All medications are currently in the waiting bin from 12/04 expected trazodone 100 mg QHS and Clondidine 0.1 mg QAM which returned to stock because they were not picked up for 2 weeks. I removed RAINE clonidine and trazodone from home list. I informed TANNER Valdez that we cannot confirm if patient has actually been taking BP medications as previous pharmacy [facility] is now closed and cannot confirm if they were picked up, therefore it is important to monitor BP closely while initating home meds. Radha Sidhu, PharmD
[2024-12-06 21:57] VITALS: BP 131/91; PULSE 76; RESP 17; TEMP 36.7; O2SAT 96
[2024-12-06 22:17] VITALS: BMI 33.1
--- NOTE | 2024-12-06 22:44 | PC.ADMIT ---
Patient arrived at 2020 from Pod. Mood is depresed and affect is flat. He is calm and pleasant and reports feeling bad about how he acted in the ED apparently very agitated. PT reports he is chronically homeless and has been increasingly depressed because his parents arent speaking with him. He reports a recent inpatient at [facility] 2 weeks ago secondary to overdosing on Trazadone in a suicide attempt. Records show that he has had multiple attempts or overdoses in the past and has been treated at many hospitals and drug/alchol treatment facilities. Pt has a history of misusing opiates, cocaine, alcohol, and benzodiazapines. He reports that he told the doctor in the ED that he wasnt drinking but the truth is that he drinks 2 pints of vodka a day for the last 3 months and reports hands shaking. He states he didnt want to report that because he didnt want to be a section 35. Dr[address] Whitmore put in Ciwa scale and med regimen accordingly. He states he is not currently feeling suicidal and is able to advocate for himself and come to staff if his depression worsens. He reports previous incarcerations for substance abuse and for safety he reports that seroquel works for him if he becomes agitated. He states his Uncle MONIQUE Arechiga is his only contact and his number is on record. He does not have an OP therapist or PCP. He is dressed in hospital attire, showered on M3 and reports feeling much better. He ate, took medications and is attempting to sleep at this time.
[2024-12-07 04:53] VITALS: BMI 33.1
[2024-12-07 08:00] VITALS: RESP 18
--- NOTE | 2024-12-07 08:40 | HO.PSYADMNOT ---
HPI Date of Service: 12/07/24 Chief Complaint: crisis Sources of Information: patient interviewed, chart reviewed and crisis/core team assessment reviewed HPI Subjective Notes: 3 Day Narrative: Patient is a 44-year-old male with history of MDD, PTSD, and cocaine use disorder who was brought in by ambulance to [facility] ER due to suicidal ideation with a plan to overdose on unknown medications secondary to increased depression. Per crisis assessment, patient reports he overdosed on Trazodone 2 weeks ago and was placed on [facility] APTU for treatment. He denies any prior suicide attempts. Patient reports his parents are not speaking to him which caused him to become increasingly depressed and suicidal. Patient denied HI/VH/AH. He currently does not have outpatient psychiatric providers. History of multiple inpatient psychiatric hospitalizations. Patient denies substance use however, BAL was 22. History of section 35 in 2009. History of several detox admissions. During admission assessment, patient presents alert and oriented x3. Calm and cooperative. Patient stated, I feel fine. I came here because I was hungry and needed to shower. I'm not suicidal. I figured they have to help me if I say I'm suicidal. I wasn't drinking. I just smoke weed. I was hoping I could stay in the ER and they would let me discharge. I already have my meds sitting in a pharmacy so I don't need you to send me anything . Patient is requesting to be discharged tomorrow morning. Patient stated, I don't need anything. I can figure out my own appointments . Patient denies SI/HI/VH/AH. Patient reports he goes to various hospitals frequently and makes similar statements. Patient stated, I didn't actually overdose. I only said that to get admitted. I'm just trying to get back to [place]. I'll figured out . Patient denies drinking alcohol; patient stated, I don't know how I scored a 22. what is that like a sip of beer . Patient signed three-day notice. Past Psychiatric History: History of multiple inpatient psychiatric hospitalizations. History of detox admissions. Does not have outpatient psychiatric providers. SA: denies SIB: denies Medical Evaluation Reviewed: Yes [facility] Medical History Cocaine use disorder Opioid use disorder Polysubstance use disorder Suicidal ideation Schizoaffective disorder, bipolar type PTSD (post-traumatic stress disorder) Family History: denies Social History: Born in [place], raised by both parents. One older sister Attend high school however did not graduate or obtain GED homeless. Substance History: reports smoking marijuana. Trauma History: denies Diagnostics Vital Signs (24Hr): Vital Signs - 24 hr 12/06/24 18:10 12/06/24 21:57 12/07/24 08:00 Temperature 98.7 F 98.0 F Pulse Rate 73 76 Respiratory Rate 16 17 18 Blood Pressure 128/88 131/91 H Pulse Oximetry 97 96 Oxygen Delivery Method Room Air Room Air BMI result Body Mass Index 33.1 Labs 12/06/24 04:10 12/06/24 04:10 Labs: Laboratory Results - last 48 hr 12/06/24 12/06/24 04:10 08:56 WBC 11.5 H RBC 4.79 Hgb 14.5 Hct 41.1 L MCV 85.8 MCH 30.3 MCHC 35.3 RDW 13.0 Plt Count 215 MPV 9.1 L Immature Gran % (Auto) 0.3 Neut % (Auto) 67.7 Lymph % (Auto) 19.6 L [place] % (Auto) 11.1 H Eos % (Auto) 1.0 Baso % (Auto) 0.3 Lymph # (Auto) 2.3 [place] # (Auto) 1.3 H Eos # (Auto) 0.1 Baso # (Auto) 0.0 Abs Immat Gran (auto) 0.03 Absolute Neuts (auto) 7.8 Absolute Nucleated RBC 0.000 Nucleated RBC % (auto) 0.0 Sodium 141 Potassium 3.6 Chloride 107 Carbon Dioxide 24 Anion Gap 14 BUN 19 H Creatinine 1.33 Estim Creat Clear Calc 95.8 Estimated GFR 59 Random Glucose 108 Calcium 9.1 Total Bilirubin 0.8 AST 35 ALT 33 Alkaline Phosphatase 80 Total Protein 8.0 Albumin 4.6 Urine Color Yellow Urine Appearance Clear Urine pH 5.5 Ur Specific [place] 1.025 Urine Protein Negative Urine Glucose (UA) Negative Urine Ketones Negative Urine Blood Negative Urine Nitrite Negative Ur Leukocyte Esterase Trace H Urine RBC 0-2 Urine WBC 0-5 Ur Squamous Epith Cells 0-2 Urine Bacteria None Seen Hyaline Casts 11-20 Urine Opiates Screen Not Detected Ur Buprenorphine Scrn Not Detected Ur Oxycodone Screen Not Detected Urine Methadone Screen Not Detected Urine Fentanyl Screen POSITIVE H Ur Barbiturates Screen Not Detected Ur Phencyclidine Scrn Not Detected Ur Amphetamines Screen Not Detected U Benzodiazepines Scrn POSITIVE H Urine Cocaine Screen POSITIVE H U Marijuana (THC) Screen Not Detected Ethyl Alcohol 22 Meds/Allergies Meds Home Medications ?Medication ?Instructions ?Recorded ?Confirmed ?Type Protonix 40 mg PO DAILY 12/06/24 12/06/24 History amlodipine 5 mg tablet 10 mg PO DAILY 12/06/24 12/06/24 History clonazepam 1 mg PO DAILY 12/06/24 12/06/24 History clonidine HCl 0.1 mg tablet 0.1 mg PO BID PRN Anxiety 12/06/24 12/06/24 History propranolol 10 mg PO DAILY 12/06/24 12/06/24 History quetiapine 100 mg tablet (Seroquel) 100 mg PO BID 12/06/24 12/06/24 History Allergies Allergies Allergy/AdvReac Type Severity Reaction Status Date / Time No Known Allergies Allergy Verified 12/06/24 04:01 Mental Status Exam Mental Status Exam Narrative: Pt is alert and oriented; behavior is cooperative and calm; dressed in casual attire; mood is described as good ; eye contact appropriate; Speech is normal rate, volume and not pressured; thought process is organized; Thought content is on discharge; denies SI/HI/VH/AH. Assessment & Plan Assessment & Plan (1) Depression: Status: Acute Code(s): F32.A - Depression, unspecified (2) Homelessness: Status: Acute Code(s): Z59.00 - Homelessness unspecified Plan Patient is a 44-year-old male with history of MDD, PTSD, and cocaine use disorder who was brought in by ambulance to [facility] ER due to suicidal ideation with a plan to overdose on unknown medications secondary to increased depression. Plan: 3 day notice Continue home medications Encourage groups Provide resources for walk-in clinics Discharge planning Patient educated on: diagnosis and medication risk/benefits Reason for continued inpatient stay Substantial Risk for: med/psych decompensation Statement Statement: I have reviewed the history and physical and performed a pertinent examination on my patient. No changes have occurred unless specified. If the History and Physical was not performed prior to admission, the Hospitalist's service will be consulted for completing the admission physical. Time Spent With Patient Time: Total time managing care of this patient today _60___ minutes.
[2024-12-07 09:48] VITALS: BP 141/90; PULSE 82
[2024-12-07] MEDS: buPROPion HCl XL 300 MG TAB.ER.24H PO (09:48)
[2024-12-07 09:49] VITALS: BP 141/90
--- NOTE | 2024-12-07 10:02 | HO.PM.IMCN ---
History of Present Illness Data of Consult Service Date: 12/07/24 Primary Care Provider: Unknown Physician HPI Reason for consult: Medical management 44-year-old male with a history of housing and security, Schizoaffective DO, Polysubstance use disorder, PTSD, HTN, anxiety and depression presenting via EMS from the streets [facility] with passive suicidality, depression without a plan to harm himself ongoing for ?weeks?. Denies recent illness including cough or cold-type symptoms, fever, chest pain, difficulty breathing, abdominal pain, nausea, vomiting, diarrhea. ED workup reveals a normal CBC, normal chemistries, UTX positive for Fentanyl, benzos and cocaine. On exam he denies any concerns, not happy about being here wants to leave. Denies any shortness of breath, dizziness, lightheadedness or any other concerning symptoms. No medical concerns. Review of Systems Review of Systems: Denies any shortness of breath, chest pain, dizziness, lightheadedness, abdominal pain or discomfort, nausea vomiting or diarrhea PMFSH Medical History Cocaine use disorder Opioid use disorder Polysubstance use disorder Suicidal ideation Schizoaffective disorder, bipolar type PTSD (post-traumatic stress disorder) Social History Household Members: None Housing: Homeless Do you presently have visiting nurse or other home services: No Alcohol intake: current Alcohol intake frequency: former alcohol drinker Alcohol type: beer Patient Tobacco Use Status: Current everyday Tobacco user Tobacco use type: Cigarette Cigarettes Per Day: 0.5 Years Smoked: 10 Smoked in Last 30 Days: Yes Patient Interested in Nicotine Replacement: No Patient Given Instructions on How to Stop Smoking: No Second Hand Smoke Exposure: No Use of substances other than those prescribed or required for medical reasons: Yes Substance Use Type: Marijuana Have you been hit, kicked, punched, or otherwise hurt by someone within the past year? If so, by whom?: No Do you feel safe in your current relationship?: No Current Relationship Is there a partner from a previous relationship who is making you feel unsafe now?: No Are you made to feel afraid or neglected: No Advance Directives: No Advance Directives Information Provided: No Do you have a plan to hurt others: No Plan Recently lost weight without trying: No Eating poorly because of decreased appetite: No Nutrition Risks: No Nutritional Risk Poor oral hygiene: No service: No Sexual orientation: Straight/Heterosexual Meds Allergies Allergy/AdvReac Type Severity Reaction Status Date / Time No Known Allergies Allergy Verified 12/06/24 04:01 Active Medications: Current Medications Acetaminophen (Acetaminophen 325 Mg Tablet) 650 mg PO Q6H PRN PRN Reason: Headache/Pain, Scale 1-10 Al Hydroxide/Mg Hydroxide (Magnesium Hydrox/Alum Hydrox 30 Ml Oral.Susp) 30 ml PO Q6H PRN PRN Reason: Heartburn/Nausea Amlodipine Besylate (Amlodipine Besylate 10 Mg Tablet) 10 mg PO DAILY [facility]; Protocol Last Admin: 12/07/24 09:49 Dose: 10 mg Bupropion HCl (Bupropion Hcl Xl 300 Mg Tab.Er.24h) 300 mg PO DAILY RAINE Last Admin: 12/07/24 09:48 Dose: 300 mg Chlorpromazine HCl (Chlorpromazine Hcl 100 Mg Tablet) 100 mg PO QID PRN PRN Reason: agitation Last Admin: 12/06/24 20:52 Dose: 100 mg Clonidine HCl (Clonidine Hcl 0.1 Mg Tablet) 0.1 mg PO BID PRN; Protocol PRN Reason: Anxiety Hydroxyzine HCl (Hydroxyzine Hcl 25 Mg Tablet) 25 mg PO Q6H PRN PRN Reason: mild anxiety Lisinopril (Lisinopril 20 Mg Tablet) 20 mg PO DAILY [facility]; Protocol Last Admin: 12/07/24 09:49 Dose: 20 mg Lorazepam (Lorazepam 1 Mg Tablet) 1 mg PO Q2H PRN PRN Reason: CIWA 8-11 Lorazepam (Lorazepam 1 Mg Tablet) 2 mg PO Q2H PRN PRN Reason: CIWA 12-15 Lorazepam (Lorazepam 1 Mg Tablet) 3 mg PO Q2H PRN PRN Reason: CIWA > 15, and call Magnesium Hydroxide (Milk Of Magnesia 30 Ml Oral.Susp) 30 ml PO DAILY PRN PRN Reason: Constipation Nicotine (Nicotine 21 Mg Patch.Td24) 21 mg TRANSDERMA DAILY [facility] Last Admin: 12/07/24 08:34 Dose: Not Given Nicotine Polacrilex (Nicotine Polacrilex 2 Mg Gum) 4 mg BUCCAL Q2H PRN PRN Reason: Nicotine Cravings Omeprazole (Omeprazole 20 Mg Capsule.) 20 mg PO DAILY@0630 [facility] Last Admin: 12/07/24 06:21 Dose: 20 mg Propranolol HCl (Propranolol Hcl 10 Mg Tablet) 10 mg PO DAILY [facility] Last Admin: 12/07/24 09:48 Dose: 10 mg Quetiapine Fumarate (Quetiapine Fumarate 100 Mg Tablet) 100 mg PO BID [facility] Last Admin: 12/07/24 08:35 Dose: Not Given Thiamine HCl (Thiamine Hcl 100 Mg Tablet) 100 mg PO DAILY [facility] Last Admin: 12/07/24 09:47 Dose: 100 mg Trazodone HCl (Trazodone Hcl 50 Mg Tablet) 50 mg PO BEDTIME MRX1 PRN PRN Reason: Insomnia Last Admin: 12/06/24 20:56 Dose: 50 mg Home Medications ?Medication ?Instructions ?Recorded ?Confirmed ?Last Taken ?Type Protonix 40 mg PO DAILY 12/06/24 12/06/24 3 Days Ago History ~12/03/24 amlodipine 5 mg tablet 10 mg PO DAILY 12/06/24 12/06/24 3 Days Ago History ~12/03/24 clonazepam 1 mg PO DAILY 12/06/24 12/06/24 3 Days Ago History ~12/03/24 clonidine HCl 0.1 mg tablet 0.1 mg PO BID PRN Anxiety 12/06/24 12/06/24 Unknown History propranolol 10 mg PO DAILY 12/06/24 12/06/24 3 Days Ago History ~12/03/24 quetiapine 100 mg tablet (Seroquel) 100 mg PO BID 12/06/24 12/06/24 3 Days Ago History ~12/03/24 Physical Exam Vital Signs and Narrative: Vital Signs: Last Vital Signs Temp 98.0 F 12/06/24 21:57 Pulse 82 12/07/24 09:48 Resp 18 12/07/24 08:00 BP 141/90 H 12/07/24 09:49 Pulse Ox 96 12/06/24 21:57 O2 Del Method Room Air 12/06/24 21:57 BMI result Body Mass Index 33.1 CONST: Alert and oriented, in NAD. Well nourished HEENT: Normocephalic, atraumatic, MMM, Eyes clear, Neck supple RESP: Lungs clear, RRR even and regular HEART:,RRR, S1, S2. No edema GI:Abdomen Soft NT, ND. + BS times four :Deferred SKIN: Warm dry and intact, no visible lesions or rashes NEURO:CN II-XII Intact bilaterally, Sensation intact. Speech clear PSYCH: Irritable affect Results Labs 12/06/24 04:10 12/06/24 04:10 Assessment and Plan (1) HTN (hypertension): Status: Acute Plan 44-year-old male with PMH of Schizoaffective DO, Polysubstance use disorder, PTSD, HTN, anxiety and depression admitted for further care after he presented to the ED with passive suicidal ideation and increased depression. Schizoaffective disorder/polysubstance use disorder/PTSD/anxiety depression and suicidal ideation Treatment per psychiatric team Hypertension Continue Norvasc and Zestril and Inderal daily GERD Continue omeprazole Thank you for allowing me to participate in the care of this patient. Will follow as needed, please notify medical provider with any changes in condition or concerns.
[2024-12-07 20:00] VITALS: RESP 16
--- NOTE | 2024-12-08 08:54 | P.DS_ITS ---
DS: Providers Provider Date of Service: 12/08/24 Date of admission: 12/06/24 13:38 Date of discharge: 12/08/24 Primary care physician: Unknown Physician Admitting clinician: Courtney Belle Attending physician on admission: Kenny Mckeon Attending physician on discharge: Kenny Mckeon Discharging clinician: Courtney Belle DS: Diagnosis Discharge Diagnosis (1) Depression: Status: Acute (2) Homelessness: Status: Acute DS: Medications Discharge Medications Home Medications: Home Medications ?Medication ?Instructions ?Recorded ?Confirmed Protonix 40 mg PO DAILY 12/06/2411/20 amlodipine 5 mg tablet 10 mg PO DAILY 12/06/2411/20 clonazepam 1 mg PO DAILY 12/06/2412/06 clonidine HCl 0.1 mg tablet 0.1 mg PO BID PRN Anxiety 12/06/24 12/06/24 propranolol 10 mg PO DAILY 12/06/2411/20 quetiapine 100 mg tablet (Seroquel) 100 mg PO BID 11/2012/06/24 Previous Rx's ?Medication ?Instructions ?Recorded bupropion HCl 300 mg 24 hr tablet, 300 mg PO QAM 30 da ys #30 tabs 01/01/23 extended release lisinopril 20 mg tablet 20 mg PO DAILY 30 days #30 t abs 01/01/23 Mental Status Exam Mental Status Exam Narrative: Pt is alert and oriented; behavior is cooperative and calm; dressed in casual attire; mood is described as good ; eye contact appropriate; Speech is normal rate, volume and not pressured; thought process is organized; Thought content is on discharge; denies SI/HI/VH/AH. Data Data Completed and Pending Completed studies during hospitalization [Text1]: 12/06/24 12/06/24 04:10 08:56 WBC 11.5 H RBC 4.79 Hgb 14.5 Hct 41.1 L MCV 85.8 MCH 30.3 MCHC 35.3 RDW 13.0 Plt Count 215 MPV 9.1 L Immature Gran % (Auto) 0.3 Neut % (Auto) 67.7 Lymph % (Auto) 19.6 L [place] % (Auto) 11.1 H Eos % (Auto) 1.0 Baso % (Auto) 0.3 Lymph # (Auto) 2.3 [place] # (Auto) 1.3 H Eos # (Auto) 0.1 Baso # (Auto) 0.0 Abs Immat Gran (auto) 0.03 Absolute Neuts (auto) 7.8 Absolute Nucleated RBC 0.000 Nucleated RBC % (auto) 0.0 Sodium 141 Potassium 3.6 Chloride 107 Carbon Dioxide 24 Anion Gap 14 BUN 19 H Creatinine 1.33 Estim Creat Clear Calc 95.8 Estimated GFR 59 Random Glucose 108 Calcium 9.1 Total Bilirubin 0.8 AST 35 ALT 33 Alkaline Phosphatase 80 Total Protein 8.0 Albumin 4.6 Urine Color Yellow Urine Appearance Clear Urine pH 5.5 Ur Specific [place] 1.025 Urine Protein Negative Urine Glucose (UA) Negative Urine Ketones Negative Urine Blood Negative Urine Nitrite Negative Ur Leukocyte Esterase Trace H Urine RBC 0-2 Urine WBC 0-5 Ur Squamous Epith Cells 0-2 Urine Bacteria None Seen Hyaline Casts 11-20 Urine Opiates Screen Not Detected Ur Buprenorphine Scrn Not Detected Ur Oxycodone Screen Not Detected Urine Methadone Screen Not Detected Urine Fentanyl Screen POSITIVE H Ur Barbiturates Screen Not Detected Ur Phencyclidine Scrn Not Detected Ur Amphetamines Screen Not Detected U Benzodiazepines Scrn POSITIVE H Urine Cocaine Screen POSITIVE H U Marijuana (THC) Screen Not Detected Ethyl Alcohol 22 DS: Summary Hospital Course Hospital Course: Patient is a 44-year-old male with history of MDD, PTSD, and cocaine use diso rder who was brought in by ambulance to [facility] ER due to suicidal ideation with a plan to overdose on unknown medications secondary to increased depression. Per crisis assessment, patient reports he overdosed on Trazodone 2 weeks ago and was placed on [facility] APTU for treatment. He denies any prior suicide attempts. Patient reports his parents are not speaking to him which caused him to become increasingly depressed and suicidal. Patient denied HI/VH/AH. He currently does not have outpatient psychiatric providers. History of multiple inpatient psychiatric hospitalizations. Patient denies substance use however, BAL was 22. History of section 35 in 2009. History of several detox admissions. During admission assessment, patient presents alert and oriented x3. Calm and cooperative. Patient stated, I feel fine. I came here because I was hungry and needed to shower. I'm not suicidal. I figured they have to help me if I say I'm suicidal. I wasn't drinking. I just smoke weed. I was hoping I could stay in the ER and they would let me discharge. I already have my meds sitting in a pharmacy so I don't need you to send me anything . Patient is requesting to be discharged tomorrow morning. Patient stated, I don't need anything. I can figure out my own appointments . Patient denies SI/HI/VH/AH. Patient reports he goes to various hospitals frequently and makes similar statements. Patient stated, I didn't actually overdose. I only said that to get admitted. I'm just trying to get back to [place]. I'll figured out . Patient denies drinking alcohol; patient stated, I don't know how I scored a 22. what is that like a sip of beer . Patient signed three-day notice. Plan: 3 day notice Continue home medications Encourage groups Provide resources for walk-in clinics Discharge planning Patient continues to report feeling good ; similar to yesterday. Pt stated he lied about SI and SI attempt to be admitted for shower and food. denies SI/HI/VH/AH. Patient reports he has prescriptions waiting for him at pharmacy that he has not picked up. He plans on following up with outpatient providers. Status at Discharge Cognitive/behavioral status at discharge: Patient has insight and demonstrates good judgment in terms of wanting to pursue treatment. Patient has a safety plan that includes presenting to the closest ER or calling 911 if feeling unsafe. Functional status at discharge: independent ambulation Overall status at discharge: patient is back to baseline Time Spent with Patient Time attestation: Total time managing care of this patient today _20___ minutes. Time spent: Less than 30 minutes Discharge Plan Discharge Anticipated Discharge Date/Time: 12/08/24 08:52 Patient Disposition: Home, Self-Care Discharge Diagnosis: MDD, PTSD Referrals: Therapy & Psychiatry [Other] - 1 Week Referral Note: *You can present to the clinic above, Wednesday through Wednesday during the hours of 8am and 8pm, in order to obtain outpatient mental health providers. Physician,Unknown J [Primary Care Provider, Medical] - 1 Week Discharge Medications: Continued lisinopril 20 mg tablet 20 mg PO DAILY 30 Days Qty: 30 0RF bupropion HCl 300 mg tablet extended release 24 hr 300 mg PO QAM 30 Days Qty: 30 0RF clonidine HCl 0.1 mg tablet 0.1 mg PO BID PRN (Reason: Anxiety) quetiapine [Seroquel] 100 mg tablet 100 mg PO BID Protonix 40 mg tablet 40 mg PO DAILY clonazepam 1 mg tablet 1 mg PO DAILY propranolol 10 mg tablet 10 mg PO DAILY amlodipine 5 mg tablet 10 mg PO DAILY Protocol: Hold for SBP< HOLD for SBP < : 90 Discharge Orders: Discharge Order (Routine); Ordered 12/08/24 Ordered By: Courtney Belle Diet: Regular diet Activity on Discharge: As tolerated Stand Alone Forms: Patient Portal Discharge page Print Language: Eritrean Care Plan Goals: Maintain mood and safe behaviors Take medications as prescribed Continue to pursue sobriety Practice coping skills Continue with outpatient providers and reach out to them as needed Health Concerns: Mood stability and behaviors Sobriety Plan of Treatment: Follow up with your PCP, psychiatric provider and other outpatient providers regarding above concerns Take medications as prescribed Assessment: Patient has insight and demonstrates good judgment in terms of wanting to pursue treatment. Patient has a safety plan that includes presenting to the closest ER or calling 911 if feeling unsafe.
== END 2024-12-08 09:49 | disposition home or self-care (01) | DRG 754 ==
LOC: HO.ED 07:57 → HO.PADLT16 14:33
PROVIDERS: Emergency Medicine; Admitting Provider Registered Nurse; Emergency Provider Emergency Medicine; Responsible Provider Registered Nurse; Visit Provider Psychiatry & Neurology Psychiatry
DX: F32.9 Major depressive disorder, single episode, unspecified (principal); R45.851 Suicidal ideations; F43.10 Post-traumatic stress disorder, unspecified; F17.210 Nicotine dependence, cigarettes, uncomplicated; K21.9 Gastro-esophageal reflux disease without esophagitis; I10 Essential (primary) hypertension; Y90.1 Blood alcohol level of 20-39 mg/100 ml; Z59.02 Unsheltered homelessness; Z71.6 Tobacco abuse counseling; Z79.899 Other long term (current) drug therapy
CPT/HCPCS: 36415; 80053; 80307; 81001; 85025; 93005; 99285; S9485

== ENCOUNTER → 2024-12-06 07:30 | Outpatient (BNV) | payer OTHER, SELFPAY | PROVIDERS: Admitting Provider Registered Nurse; Emergency Provider Emergency Medicine; Visit Provider Internal Medicine | DX: R94.31 Abnormal electrocardiogram [ECG] [EKG] (principal); Z13.6 Encounter for screening for cardiovascular disorders | CPT/HCPCS: 93010 ==

== ENCOUNTER → 2024-12-06 13:38 | Outpatient (BNV) | payer OTHER, SELFPAY | PROVIDERS: Admitting Provider Registered Nurse; Emergency Provider Emergency Medicine; Visit Provider Nurse Practitioner Family | DX: I10 Essential (primary) hypertension (principal) | CPT/HCPCS: 99221 ==

== ENCOUNTER → 2024-12-06 13:38 | Outpatient (BNV) | payer OTHER, SELFPAY | PROVIDERS: Admitting Provider Registered Nurse; Emergency Provider Emergency Medicine; Responsible Provider Registered Nurse; Visit Provider Registered Nurse | DX: F32.2 Major depressive disorder, single episode, severe without psychotic features (principal); Z59.00 Homelessness unspecified | CPT/HCPCS: 90792; 99238 ==